=== PATIENT | male | born 1990 | race Caucasian/White ===

== ENCOUNTER → 2016-11-16 | Outpatient (CLI) | payer OTHER ==
[2016-11-16 10:53] LABS: ABSOLUTE BASOPHILS # (AUTO) 0.1 10^3/uL (0.0-0.2); ABSOLUTE EOSINOPHILS # (AUTO) 0.2 10^3/uL (0.0-0.6); ABSOLUTE LYMPHOCYTES (AUTO) 1.8 10^3/uL (0.5-4.7); ABSOLUTE MONOCYTES (AUTO) 0.7 10^3/uL (0.1-1.4); ABSOLUTE NEUT (AUTO) 4.1 10^3/uL (1.7-8.2); BASOPHILS % (AUTO) 0.8 % (0-2); EOSINOPHILS % (AUTO) 2.9 % (0-6); HEMATOCRIT 33.1 % (37.9-51.0); HEMOGLOBIN 10.1 g/dL (13.5-17.0); HGB HCT DIFFERENCE -2.8; LYMPHOCYTES % (AUTO) 26.3 % (13-45); MEAN CORPUSCULAR HEMOGLOBIN 23.8 pg (27.0-33.4); MEAN CORPUSCULAR HGB CONC 30.6 g/dL (32.0-36.0); MEAN CORPUSCULAR VOLUME 78 fl (80-97); MONOCYTES % (AUTO) 10.1 % (3-13); RED BLOOD COUNT 4.25 10^6/uL (4.35-5.55); RED CELL DISTRIBUTION WIDTH 14.9 % (11.5-14.0); SEGMENTED NEUTROPHILS % (AUTO) 59.9 % (42-78); WHITE BLOOD COUNT 6.8 10^3/uL (4.0-10.5)
[2016-11-16 11:33] LABS: ALANINE AMINOTRANSFERASE 25 U/L (21-72); ALBUMIN 3.9 g/dL (3.5-5.0); ALKALINE PHOSPHATASE 69 U/L (38-126); ANION GAP 9 (5-19); ASPARTATE AMINO TRANSFERASE 21 U/L (17-59); BILIRUBIN,TOTAL 0.3 mg/dL (0.2-1.3); BLOOD UREA NITROGEN 16 mg/dL (7-20); CALCIUM 9.6 mg/dL (8.4-10.2); CARBON DIOXIDE 27 mmol/L (22-30); CHLORIDE 105 mmol/L (98-107); CREATININE RESULT 0.69 mg/dL (0.52-1.25); GLUCOSE 109 mg/dL (75-110); SODIUM 141.1 mmol/L (137-145); TOTAL PROTEIN 6.4 g/dL (6.3-8.2)
[2016-11-16 11:34] LABS: ERYTHROCYTE SEDIMENTATION RATE 27 mm/hr (0-15)
[2016-11-16 11:44] LABS: POTASSIUM 4.3 mmol/L (3.6-5.0)
[2016-11-16 11:47] LABS: C-REACTIVE PROTEIN < 5.0 mg/L (<10.0)
== END ==
LOC: CHH 10:38
PROVIDERS: ATTEND Internal Medicine
DX: M86.9 Osteomyelitis, unspecified (principal); Z79.2 Long term (current) use of antibiotics
CPT/HCPCS: 80053; 85025; 85652; 86140

== ENCOUNTER → 2018-04-14 | Outpatient (CLI) | payer OTHER ==
--- NOTE | 2018-04-14 22:23 | RADIOLOGY REPORT (SQ) ---
EXAM DESCRIPTION: MRI LUMBAR SPINE WITHOUT COMPLETED DATE/TIME: 04/14/2018 2:50 pm REASON FOR STUDY: CHRONIC LOW BACK PAIN COMPARISON: None. TECHNIQUE: Sagittal and Axial imaging includes T1, T2, STIR and gradient echo sequences. Coronal T2/ HASTE imaging. LIMITATIONS: None. FINDINGS: VISUALIZED UPPER ABDOMEN: Limited evaluation. No acute or suspicious findings suggested. SEGMENTATION: No transitional anatomy. The lowest well-developed disc space is labeled L5-S1. ALIGNMENT: Anatomic. VERTEBRAE: Intact. BONE MARROW: Normal. No marrow replacement or reactive changes. DISC SIGNAL: Normal. No significant abnormal signal or loss of height. POSTERIOR ELEMENTS: Generally intact. No pars defect evident. HARDWARE: None in the spine. CORD AND CONUS: Normal in size and signal intensity. Conus at the appropriate level. SOFT TISSUES: No aortic aneurysm seen. No bulky retroperitoneal adenopathy or mass. No paraspinal mas s or fluid. L1-L2: No significant spinal stenosis or exit foraminal stenosis. L2-L3: No significant spinal stenosis or exit foraminal stenosis. L3-L4: No significant spinal stenosis or exit foraminal stenosis. L4-L5: No significant spinal stenosis or exit foraminal stenosis. L5-S1: No significant spinal stenosis or exit foraminal stenosis. LOWER THORACIC: Incompletely imaged. No stenosis seen. SACRUM: Visualized upper sacrum intact. OTHER: No other significant findings. IMPRESSION: NORMAL MRI LUMBAR SPINE. TECHNICAL DOCUMENTATION: JOB ID: [id number] [employer]- All Rights Reserved Reading location - IP/workstation name: [email or web address]
== END ==
LOC: RAD 14:05
PROVIDERS: ATTEND Physician Assistant
DX: M54.5 Low back pain (principal); Z89.611 Acquired absence of right leg above knee
CPT/HCPCS: 72148

== ENCOUNTER 2018-06-26 07:28 | Day surgery (SDC) | payer OTHER ==
--- NOTE | 2018-06-19 11:48 | RADIOLOGY REPORT (SQ) ---
EXAM DESCRIPTION: CHEST PA/LATERAL COMPLETED DATE/TIME: 06/19/2018 11:34 am REASON FOR STUDY: PRE-OP COMPARISON: None. TECHNIQUE: Frontal and lateral radiographic views of the chest acquired. NUMBER OF VIEWS: Two view. LIMITATIONS: None. FINDINGS: LUNGS AND PLEURA: No opacities, masses or pneumothorax. No pleural effusion. MEDIASTINUM AND HILAR STRUCTURES: No masses or contour abnormalities. HEART AND VASCULAR STRUCTURES: Heart normal size. No evidence for failure. BONES: No acute findings. HARDWARE: None in the chest. OTHER: No other significant finding. IMPRESSION: NO SIGNIFICANT RADIOGRAPHIC FINDING IN THE CHEST. TECHNICAL DOCUMENTATION: JOB ID: [id number] [employer]- All Rights Reserved Reading location - IP/workstation name: [email or web address]
[2018-06-19 12:08] LABS: APPEARANCE,URINE CLEAR; BILIRUBIN,URINE NEGATIVE (NEGATIVE); COLOR,URINE AMBER; GLUCOSE, URINE NEGATIVE (NEGATIVE); KETONES,URINE TRACE mg/dL (NEGATIVE); LEUKOCYTE ESTERASE,URINE NEGATIVE (NEGATIVE); NITRITE,URINE NEGATIVE (NEGATIVE); PROTEIN,URINE NEGATIVE (NEGATIVE); URINE SPECIFIC GRAVITY 1.024
[2018-06-19 12:09] LABS: HEMATOCRIT 43.5 % (37.9-51.0); HEMOGLOBIN 14.5 g/dL (13.5-17.0); MEAN CORPUSCULAR HEMOGLOBIN 27.8 pg (27.0-33.4); MEAN CORPUSCULAR HGB CONC 33.3 g/dL (32.0-36.0); MEAN CORPUSCULAR VOLUME 83 fl (80-97); PLATELET COUNT 178 10^3/uL (150-450); RED BLOOD COUNT 5.22 10^6/uL (4.35-5.55); RED CELL DISTRIBUTION WIDTH 14.9 % (11.5-14.0); WHITE BLOOD COUNT 6.6 10^3/uL (4.0-10.5)
[2018-06-19 12:31] LABS: ANION GAP 16 (5-19); BLOOD UREA NITROGEN 15 mg/dL (7-20); CARBON DIOXIDE 25 mmol/L (22-30); CHLORIDE 104 mmol/L (98-107); GLUCOSE 82 mg/dL (75-110); POTASSIUM 4.3 mmol/L (3.6-5.0); SODIUM 145.1 mmol/L (137-145)
--- NOTE | 2018-06-19 22:17 | EKG REPORT ---
SEVERITY:- NORMAL ECG - SINUS RHYTHM : Confirmed by: Neva Sanchez 19-Jun-2018 22:17:28
[~2018-06-26 07:28] MED LIST: CEFAZOLIN 2 GM/D5W RTU 2 GM/50 ML RTUPB IV PRN; LACTATED RINGERS 1000 ML IV PRN
[2018-06-26] MEDS ORDERED: KETOROLAC TROMETHAMINE 60 MG/2 ML SDV ONE (09:36)
[2018-06-26] MEDS ORDERED: ONDANSETRON HCL INJ/PF 4 MG/2 ML SDV ONE (09:36)
[2018-06-26] MEDS ORDERED: SUCCINYLCHOLINE CHLORIDE INJ 200 MG/10 ML VIAL ONE (09:36)
[2018-06-26] MEDS ORDERED: DEXAMETHASONE SOD PHOSPHATE INJ 4 MG/1 ML VIAL ONE (09:36)
[2018-06-26] MEDS ORDERED: FENTANYL CITRATE INJ/PF 100 MCG/2 ML AMPUL ONE (11:26)
[2018-06-26] MEDS ORDERED: MIDAZOLAM 2 MG/2 ML INJ ONE (11:26)
[2018-06-26] MEDS ORDERED: PROPOFOL INJ 200 MG/20 ML VIAL IV ONE (11:27)
[2018-06-26] MEDS ORDERED: BUPIVACAINE HCL 0.5%-EPI 1:200000 INJ/PF 30 ML VIAL ONE (11:57)
[2018-06-26] MEDS ORDERED: DIPHENHYDRAMINE HCL 50 MG/ML VIAL IV PRN (12:15)
[2018-06-26] MEDS ORDERED: FENTANYL CITRATE INJ/PF 100 MCG/2 ML AMPUL IV PRN ×3 (12:15)
[2018-06-26] MEDS ORDERED: PROMETHAZINE HCL INJ 25 MG/1 ML VIAL IV PRN ×2 (12:15)
--- NOTE | 2018-06-26 12:51 | Operative Report ---
Operative Report DATE OF SURGERY: 06/26/18 PREOPERATIVE DIAGNOSIS: Painful right above-knee amputation OPERATION: Revision above-knee amputation right. Sciatic neural lysis. Excision sciatic neuroma SURGEON: VADIM CHAVEZ ANESTHESIA: GA TISSUE REMOVED OR ALTERED: Distal femur, sciatic neuroma to pathology ESTIMATED BLOOD LOSS: 50 PROCEDURE: With the patient supine and operative table the right lower extremities prepped and draped in sterile fashion. A sterile tourniquet is placed. Limb was elevated. The tourniquet inflated 300 torr. A distal transverse incision was utilized in line with a previous surgical closure. This is taken down through the subcutaneous tissue and scant fascia to the underlying femur. Periosteum was elevated off the distal femur approximately 2 inches or resected. The edges of the residual femur are shaved using the oscillating saw to prevent any sharp edges. The end of the femur is closed with bone wax. Attention was now turned to identifying the sciatic nerve. This is identified between the hamstring layers and traced proximally. Approximately 3 or 4 inches proximal there is a large bulbous swelling consistent with a neuroma. The sciatic nerve is in transected proximal to this. The tourniquet is deflated. The wound was irrigated. Hemostasis obtained with electrocautery. The wound was then closed using a myoplasty B adjoining the hamstring musculature the quadriceps musculature over the end of the distal femur. Subcutaneous tissue was reapproximated interrupted Vicryl and heron on the skin. A sterile compressive dressing was applied and the patient's return to PACU in satisfactory condition.
[2018-06-26] MEDS: FENTANYL CITRATE INJ/PF 100 MCG/2 ML AMPUL ONE ×2 (13:08→13:13)
[2018-06-26] MEDS ORDERED: ACETAMINOPHEN 1,000 MG/100 ML RTUPB IV ONE (13:24)
[2018-06-26] MEDS ORDERED: RINGERS SOLUTION,LACTATED 1,000 ML IV PRN ×2 (13:44→15:00)
[2018-06-26] MEDS ORDERED: HYDROMORPHONE HCL INJ/PF 2 MG/ML AMPULE IV PRN (13:50)
[2018-06-26] MEDS ORDERED: ONDANSETRON 4 MG TAB.RAPDIS PO PRN (13:50)
[2018-06-26] MEDS: CEFAZOLIN SODIUM 2 GM in DEXTROSE 5%-WATER 100 ML IV SCH ×2 (15:21→21:55)
[2018-06-26] MEDS: MORPHINE SULFATE 10 MG/ML INJ IV PRN ×4 (15:21→23:38)
[2018-06-26] MEDS: HYDROMORPHONE HCL 2 MG TABLET PO PRN (20:12)
[2018-06-26] MEDS: DULOXETINE HCL 30 MG CAPSULE.DR PO SCH (21:54)
[2018-06-26] MEDS: BUPROPION HCL 100 MG TABLET PO SCH (21:54)
[2018-06-26] MEDS: TOPIRAMATE 100 MG TABLET PO SCH (21:55)
[2018-06-26] MEDS: TIZANIDINE HCL 4 MG TABLET PO SCH (21:55)
[2018-06-26] MEDS ORDERED: ATORVASTATIN CALCIUM 20 MG TABLET PO SCH (22:00)
[2018-06-26] MEDS ORDERED: LORATADINE 10 MG TABLET PO SCH (22:00)
[2018-06-26] MEDS: GABAPENTIN 300 MG CAPSULE PO SCH (23:08)
[2018-06-27] MEDS: HYDROMORPHONE HCL 2 MG TABLET PO PRN ×2 (02:21→09:12)
[2018-06-27] MEDS: MORPHINE SULFATE 10 MG/ML INJ IV PRN ×2 (04:53→07:29)
[2018-06-27 05:09] LABS: HEMATOCRIT 35.7 % (37.9-51.0); MEAN CORPUSCULAR HEMOGLOBIN 28.2 pg (27.0-33.4); MEAN CORPUSCULAR HGB CONC 33.7 g/dL (32.0-36.0); MEAN CORPUSCULAR VOLUME 84 fl (80-97); PLATELET COUNT 124 10^3/uL (150-450); RED BLOOD COUNT 4.27 10^6/uL (4.35-5.55); RED CELL DISTRIBUTION WIDTH 14.7 % (11.5-14.0); WHITE BLOOD COUNT 11.1 10^3/uL (4.0-10.5)
[2018-06-27 05:26] LABS: ANION GAP 14 (5-19); BLOOD UREA NITROGEN 11 mg/dL (7-20); CALCIUM 8.9 mg/dL (8.4-10.2); CARBON DIOXIDE 20 mmol/L (22-30); CHLORIDE 108 mmol/L (98-107); GLUCOSE 109 mg/dL (75-110); POTASSIUM 3.3 mmol/L (3.6-5.0); SODIUM 141.5 mmol/L (137-145)
[2018-06-27] MEDS: CEFAZOLIN SODIUM 2 GM in DEXTROSE 5%-WATER 100 ML IV SCH (05:27)
[2018-06-27] MEDS: BUPROPION HCL 100 MG TABLET PO SCH (05:27)
[2018-06-27] MEDS: TIZANIDINE HCL 4 MG TABLET PO SCH (05:27)
[2018-06-27] MEDS: GABAPENTIN 300 MG CAPSULE PO SCH ×2 (05:27→11:24)
[2018-06-27] MEDS ORDERED: LANSOPRAZOLE 30 MG TAB.RAP.DR PO SCH (06:00)
--- NOTE | 2018-06-27 06:37 | PDOC DISCHARGE SUMMARY ---
General - Admit/Disc Date/PCP Admission Date/Primary Care Provider: YAMILEX SZYMANSKI Discharge Date: 06/27/18 - Discharge Diagnosis (1) History of right above knee amputation Is this a current diagnosis for this admission?: Yes - Additional Information Discharge Diet: As Tolerated, Regular Discharge Activity: Balance Activity w/Rest, No tub bath Home Medications: Albuterol Sulfate [Ventolin HFA MDI 18 GM] 2 puff IH Q8 06/19/18 Atorvastatin Calcium [Lipitor 20 mg Tablet] 20 mg PO QHS 06/19/18 Bupropion HCl [Wellbutrin Xl] 300 mg PO DAILY 06/19/18 Duloxetine HCl [Cymbalta] 60 mg PO Q12 06/19/18 Fluticasone Furoate [Arnuity Ellipta] 2 puff IH QAM 06/19/18 Hydrochlorothiazide 25 mg PO DAILY 06/19/18 Hydromorphone HCl [Hydromorphone ER] 8 mg PO QPM 06/19/18 Lansoprazole [Prevacid] 30 mg PO DAILY 06/19/18 Loratadine 10 mg PO QHS 06/19/18 Multivitamin with Minerals [One Daily Plus Minerals] 1 each PO DAILY 06/19/18 Olodaterol HCl [Striverdi Respimat] 5 mcg IH DAILY 06/19/18 Quetiapine Fumarate [Seroquel] 200 mg PO QPM 06/19/18 Ranitidine HCl 150 mg PO BID 06/19/18 Sildenafil Citrate [Viagra] 100 mg PO ASDIR PRN 06/19/18 Tizanidine HCl 8 mg PO TID 06/19/18 Tolmetin Sodium 400 mg PO Q12 06/19/18 Topiramate 100 mg PO Q12 06/19/18 Gabapentin [Neurontin] 600 mg PO Q6 06/26/18 Aspirin [Ecotrin 81 mg EC Tablet] 81 mg PO DAILY tabec 06/27/18 Gabapentin [Neurontin 300 mg Capsule] 600 mg PO Q6 capsule 06/27/18 History of Present Illness History of Present Illness: MANJEET CHAU is a 28 year old male Hospital Course Hospital Course: Patient is a 28-year-old white male status post a number of unfortunate medical incidents beginning with a 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 He presents with problems with the stump coverage as well as a sciatic neuroma. He is admitted for an elective revision of of the right above-knee amputation and excision of the sciatic nerve neuroma The patient is admitted through the operating room where he undergoes uncomplicated surgical procedure with a revision of the right above-knee amputation and resection of the distal 5 inches or so of the sciatic nerve containing a large neuroma. Patient tolerates the procedure without complications returned to floor in satisfactory condition. Analgesia appears appropriate. Patient is able to ambulate as previously. Dressings taken down on the first postoperative day and was well approximated with heron and no drainage. There is no erythema. Previous tenderness at the site of the neuroma seems to be improved. Physical Exam Vital Signs: Temp Pulse Resp BP Pulse Ox 37.0 C 90 14 118/62 96 06/26/18 23:52 06/26/18 23:52 06/26/18 23:52 06/26/18 23:52 06/26/18 23:52 Intake & Output 06/25/18 06/26/18 06/27/18 06:59 06:59 06:59 Intake Total 1666 Output Total 470 Balance 1196 Weight 77.11 kg General appearance: PRESENT: no acute distress, mild distress Head exam: PRESENT: normocephalic Respiratory exam: PRESENT: unlabored Cardiovascular exam: PRESENT: RRR GI/Abdominal exam: PRESENT: soft Rectal exam: PRESENT: deferred Extremities exam: PRESENT: other - Right lower extremity incision is well approximated heron. It is dry. There is brisk capillary refill on both edges. Neurological exam: PRESENT: alert, awake, oriented to person, oriented to place , oriented to time, oriented to situation. ABSENT: motor sensory deficit Psychiatric exam: PRESENT: appropriate affect, normal mood. ABSENT: homicidal ideation, suicidal ideation Skin exam: PRESENT: dry, intact, warm. ABSENT: cyanosis, rash Results Laboratory Results: 06/27/18 04:39 06/27/18 04:39 06/26/18 06/27/18 06/27/18 08:00 04:39 04:39 WBC 11.1 H RBC 4.27 L Hgb 12.0 L Hct 35.7 L MCV 84 MCH 28.2 MCHC 33.7 RDW 14.7 H Plt Count 124 L Sodium 141.5 Potassium 3.7 3.3 L Chloride 108 H Carbon Dioxide 20 L Anion Gap 14 BUN 11 Creatinine 0.88 Est GFR ( Amer) > 60 Est GFR (Non-Af Amer) > 60 Glucose 109 Calcium 8.9 Impressions: Chest X-Ray 06/19/18 11:19 IMPRESSION: NO SIGNIFICANT RADIOGRAPHIC FINDING IN THE CHEST. Status: Imported from PACS Qualifiers - * PATIENT BEING DISCHARGED WITH ANY OF THE FOLLOWING DIAGNOSIS: No VTE patient discharged on overlapping Therapy?: Yes Plan Discharge Plan: Patient to be discharged home today with home health services. Patient to use a stump exerciser as previously. Follow-up with Dr. Salter and [facility] for surgery in 2 weeks for staple removal. Time Spent: Less than 30 Minutes
[2018-06-27] MEDS ORDERED: FLUTICASONE FUROATE IH SCH (08:00)
[2018-06-27] MEDS: DULOXETINE HCL 30 MG CAPSULE.DR PO SCH (09:12)
[2018-06-27] MEDS: TOPIRAMATE 100 MG TABLET PO SCH (09:13)
[2018-06-27] MEDS ORDERED: ASPIRIN 81 MG TABLET, ENT COATED PO SCH (10:00)
[2018-06-27] MEDS ORDERED: OLODATEROL HCL IH SCH (10:00)
[2018-06-27] MEDS ORDERED: FAMOTIDINE 20 MG TABLET PO SCH (10:00)
[2018-06-27] MEDS ORDERED: MULTIVITAMIN TABLET PO SCH (10:00)
[2018-06-27] MEDS ORDERED: [UNRECOGNIZED DRUG - OTHER] PO SCH (10:00)
[2018-06-27] MEDS ORDERED: (PENDING PHARMACY ID) (Multivitamin With Minerals [One Daily Plus Minerals] 1 EACH) PO SCH (10:00)
[2018-06-27] MEDS ORDERED: HYDROCHLOROTHIAZIDE 25 MG TABLET PO SCH (10:00)
[2018-06-27] MEDS ORDERED: (PENDING PHARMACY ID) (Bupropion Hcl [Wellbutrin Xl] 300 MG) PO SCH (10:00)
[2018-06-27] MEDS ORDERED: (PENDING PHARMACY ID) (Ranitidine Hcl [Ranitidine Hcl] 150 MG) PO SCH (10:00)
[2018-06-27] MEDS ORDERED: ALBUTEROL SULFATE HFA (90 MCG/PUFF) 200 PUFF/8.5 GM MDI IH SCH (10:00)
[2018-06-27 11:06] VITALS: BP 107/70
[2018-06-27] MEDS ORDERED: QUETIAPINE FUMARATE 100 MG TABLET PO SCH (18:00)
== END 2018-06-27 11:47 | disposition home health service (06) ==
LOC: OROUT 07:28 → 4N 14:07 → OROUT 06-27 11:47
PROVIDERS: ATTEND Orthopaedic Surgery
DX: G54.6 Phantom limb syndrome with pain (principal); T87.33 Neuroma of amputation stump, right lower extremity; Y83.5 Amputation of limb(s) as the cause of abnormal reaction of the patient, or of later complication, without mention of misadventure at the time of the procedure; Z89.611 Acquired absence of right leg above knee; F17.210 Nicotine dependence, cigarettes, uncomplicated; I10 Essential (primary) hypertension; Z79.51 Long term (current) use of inhaled steroids; Z79.899 Other long term (current) drug therapy; Z88.5 Allergy status to narcotic agent
CPT/HCPCS: 93005; 36415 ×2; 84132; 85027 ×2; 80048 ×2; 81001; 88305 ×2; 88311; 71046; 93010; 97116; 97163; 27596; J2250; J3490 ×6; J0690 ×3; J1100; J1885; J3010; J2270 ×2; J0330; J2405; J2704; J0131; 01232

== ENCOUNTER 2018-07-10 14:03 | Emergency (ER) | payer OTHER ==
--- NOTE | 2018-07-10 15:18 | ER Document Report ---
ED Wound - General Chief Complaint: Post Surgical Pain Stated Complaint: POST OP COMPLICATION Time Seen by Provider: 07/10/18 14:53 Mode of Arrival: Ambulatory Information source: Patient Notes: Patient complains of wound dehiscence which he noticed this morning on his right above-knee amputation stump. He denies any injury or trauma. TRAVEL OUTSIDE OF THE [place] IN LAST 30 DAYS: No - HPI Patient complains to provider of: Post surgical problem, Other - Wound dehiscence Occurred: This morning Onset/Duration: Sudden Quality of pain: Achy Severity: Mild Pain Level: 1 Skin Temperature: Warm Skin Color: Normal Capillary refill: < 3 seconds Sensations intact: Yes Distal pulses present: Yes Associated Symptoms: Dehiscence - Related Data Allergies/Adverse Reactions: meperidine [From Demerol] Allergy (Severe, Verified 07/10/18 15:01) Anaphylaxis oxycodone Allergy (Verified 07/10/18 15:01) Hives Past Medical History - Social History Smoking Status: Never Smoker Chew tobacco use (# tins/day): No Frequency of alcohol use: None Drug Abuse: None Family History: Reviewed & Not Pertinent Patient has suicidal ideation: No Patient has homicidal ideation: No - Past Medical History Cardiac Medical History: Reports: Hx Hypertension Denies: Hx Coronary Artery Disease, Hx Heart Attack Pulmonary Medical History: Reports: Hx Asthma, Hx Bronchitis Denies: Hx COPD, Hx Pneumonia Neurological Medical History: Denies: Hx Cerebrovascular Accident, Hx Seizures Renal/ Medical History: Denies: Hx Peritoneal Dialysis Musculoskeletal Medical History: Reports Hx Arthritis Past Surgical History: Reports: Hx Orthopedic Surgery - right lower [id number] - Immunizations Hx Diphtheria, Pertussis, Tetanus Vaccination: Yes Review of Systems - Review of Systems Constitutional: denies: Chills, Fever EENT: denies: Eye pain, Eye discharge Cardiovascular: No symptoms reported Respiratory: denies: Cough, Short of breath Gastrointestinal: denies: Abdominal pain, Diarrhea, Nausea, Vomiting Genitourinary: No symptoms reported. denies: Burning, Dysuria, Discharge Male Genitourinary: No symptoms reported Musculoskeletal: Other - Wound dehiscence on the right stump. Skin: Change in color Hematologic/Lymphatic: No symptoms reported Neurological/Psychological: No symptoms reported -: Yes All other systems reviewed and negative Physical Exam - Vital signs Vitals: Temp Pulse Resp BP Pulse Ox 97.7 F 89 16 106/74 98 07/10/18 14:24 07/10/18 14:24 07/10/18 14:24 07/10/18 14:24 07/10/18 14:24 - General General appearance: Appears well, Alert In distress: None - HEENT Head: Normocephalic, Atraumatic Eyes: Normal Pupils: PERRL - Respiratory Respiratory status: No respiratory distress Chest status: Nontender Breath sounds: Normal Chest palpation: Normal - Cardiovascular Rhythm: Regular Heart sounds: Normal auscultation Murmur: No - Abdominal Inspection: Normal Distension: No distension Bowel sounds: Normal Tenderness: Nontender Organomegaly: No organomegaly - Back Back: Normal, Nontender - Extremities General upper extremity: Other - Wound dehiscence on the right above-knee amputation stump approximately 6 cm long and 0.5 cm deep. Bleeding is controlled. No purulent discharge. Shoulder: Normal Arm: Normal Elbow: Normal Forearm: Normal Wrist: Normal Hand: Normal Hip: Normal Thigh: Normal - Neurological Neuro grossly intact: Yes Cognition: Normal Orientation: AAOx4 [place] Coma Scale Eye Opening: Spontaneous [place] Coma Scale Verbal: Oriented [place] Coma Scale Motor: Obeys Commands [place] Coma Scale Total: 15 Speech: Normal Motor strength normal: LUE, RUE, LLE, RLE Sensory: Normal - Psychological Associated symptoms: Normal affect, Normal mood - Skin Skin Temperature: Warm Skin Moisture: Dry Skin Color: Normal Course - Re-evaluation Re-evalutation: 07/10/18 15:[address] Jayme John who is balloon maker for Dr. Salter. He recommend wet- to-dry dressing to the wound to be done twice a day at home. He want patient to be discharged with p.o. antibiotics to follow-up with Dr. Salter in his clinic on Sunday. - Vital Signs Vital signs: Temp Pulse Resp BP Pulse Ox 97.7 F 89 16 106/74 98 07/10/18 14:24 07/10/18 14:24 07/10/18 14:24 07/10/18 14:24 07/10/18 14:24 Discharge - Discharge Clinical Impression: Surgical wound dehiscence Qualifiers: Encounter type: initial encounter Qualified Code(s): T81.31XA - Disruption of external operation (surgical) wound, not elsewhere classified, initial encounter Condition: Stable Disposition: HOME, SELF-CARE Instructions: Dressing Instructions for Open Wounds ([facility]) Additional Instructions: Please do wet-to-dry dressing on your wound twice a day. Follow-up with Dr. Salter on Sunday for further evaluation and management. Return to the emergency room if your wound dehiscence worsens or you start running a fever or you start seeing purulent discharge from the wound or for any other major concern. Take your antibiotics as prescribed. Prescriptions: Sulfamethoxazole/Trimethoprim [Bactrim Ds Tablet] 1 each PO BID #28 tablet Referrals: KARMEN ARRIOLA FNP [Primary Care Provider] - Follow up as needed
[2018-07-10] MEDS ORDERED: SULFAMETHOXAZOLE/TRIMETHOPRIM 800-160 MG TABLET PO ONE (15:23)
[2018-07-10 16:37] VITALS: BP 106/78
== END 2018-07-10 16:05 | disposition home or self-care (01) ==
LOC: ER 14:03
DX: T87.81 Dehiscence of amputation stump (principal); Z89.611 Acquired absence of right leg above knee
CPT/HCPCS: 99283

== ENCOUNTER → 2018-11-07 | Outpatient (CLI) | payer OTHER ==
--- NOTE | 2018-11-07 14:07 | RADIOLOGY REPORT (SQ) ---
EXAM DESCRIPTION: CT ABD/PELVIS WITH IV ORAL COMPLETED DATE/TIME: 11/07/2018 1:45 pm REASON FOR STUDY: R59.9 ENLARGED LYMPH NODES, UNSPECIFIED R59.9 ENLARGED LYMPH NODES, UNSPECIFIED COMPARISON: None. TECHNIQUE: CT scan of the abdomen and pelvis performed with intravenous and oral contrast using antoine lacey scanning technique with dynamic intravenous contrast injection. Images reviewed with lung, soft t issue, and bone windows. Reconstructed coronal and sagittal MPR images reviewed. Delayed images for e valuation of the urinary system also acquired. All images stored on PACS. All CT scanners at this facility use dose modulation, iterative reconstruction, and/or weight based d osing when appropriate to reduce radiation dose to as low as reasonably achievable (ALARA). [facility]: Dose Right [facility]: CareDose [facility]: Dose Right [facility]: Teradose 4D [facility]: Memrise CONTRAST TYPE AND DOSE: contrast/concentration: Isovue 350.00 mg/ml; Total Contrast Delivered: 94.0 ml; Total Saline Delivered: 71.0 ml RENAL FUNCTION: GFR > 60. RADIATION DOSE: CT Rad equipment meets quality standard of care and radiation dose reduction techniq ues were employed. CTDIvol: 8.4 - 9.5 mGy. DLP: 1029 mGy-cm. . LIMITATIONS: None. FINDINGS: LOWER CHEST: No significant findings. No nodules or infiltrates. LIVER: Normal size. No masses. No dilated ducts. SPLEEN: Normal size. No focal lesions. PANCREAS: No masses. No significant calcifications. No adjacent inflammation or peripancreatic fluid collections. Pancreatic duct not dilated. GALLBLADDER: No identified stones by CT criteria. No inflammatory changes to suggest cholecystitis. ADRENAL GLANDS: No significant masses or asymmetry. RIGHT KIDNEY AND URETER: No solid masses. No significant calcifications. No hydronephrosis or hyd roureter. LEFT KIDNEY AND URETER: No solid masses. No significant calcifications. No hydronephrosis or hydr oureter. AORTA AND VESSELS: No aneurysm. No dissection. Renal arteries, SMA, celiac without stenosis. RETROPERITONEUM: No retroperitoneal adenopathy, hemorrhage or masses. BOWEL AND PERITONEAL CAVITY: No obstruction. No visualized masses. No free fluid. No inflammatory ch anges or thickening of bowel wall. APPENDIX: Normal. PELVIS: There are small bilateral inguinal nodes, the largest on the right 11 x 14 mm. Remaining nod es have preserved fatty hilum or measure less than 1 cm short axis. No pelvic adenopathy. Normal omaira dder. No free fluid. ABDOMINAL WALL: No masses. No hernias. BONES: No significant or acute findings. OTHER: No other significant finding. IMPRESSION: Mildly enlarged right inguinal node. No bulky adenopathy. TECHNICAL DOCUMENTATION: JOB ID: [id number] Quality ID # [id number]: Final reports with documentation of one or more dose reduction techniques (e.g., Au tomated exposure control, adjustment of the mA and/or kV according to patient size, use of iterative reconstruction technique) 2010 [employer]- All Rights Reserved Reading location - IP/workstation name: [email or web address]
== END ==
LOC: RAD 14:53
PROVIDERS: ATTEND Internal Medicine Medical Oncology
DX: R59.9 Enlarged lymph nodes, unspecified (principal)
CPT/HCPCS: 74177; 82565

== ENCOUNTER → 2019-02-03 | Outpatient (CLI) | payer OTHER ==
--- NOTE | 2019-02-03 12:37 | RADIOLOGY REPORT (SQ) ---
EXAM DESCRIPTION: CT CHEST WITH COMPLETED DATE/TIME: 02/03/2019 10:22 am REASON FOR STUDY: ENLARGE LYMPH NODES (R59.9) R59.9 ENLARGED LYMPH NODES, UNSPECIFIED COMPARISON: None. TECHNIQUE: CT scan of the chest performed using helical scanning technique with dynamic intravenous contrast injection. Images reviewed with lung, soft tissue and bone windows. Reconstructed coronal and sagittal MPR and MIP images reviewed. All images stored on PACS. All CT scanners at this facility use dose modulation, iterative reconstruction, and/or weight based d osing when appropriate to reduce radiation dose to as low as reasonably achievable (ALARA). [facility]: Dose Right [facility]: CareDose [facility]: Dose Right [facility]: Teradose 4D [facility]: GoCoop CONTRAST TYPE AND DOSE: 96 mL Omnipaque 350- low osmolar. RENAL FUNCTION: Creatinine 1.1 RADIATION DOSE: . LIMITATIONS: None. FINDINGS: LUNGS AND PLEURA: No opacities, nodules, masses. No pneumothorax. No effusions. HILAR AND MEDIASTINAL STRUCTURES: No identified masses or abnormal nodes. HEART AND VASCULAR STRUCTURES: No aneurysm or dissection. No central pulmonary emboli. No pericardi al effusion. HARDWARE: None in the chest. UPPER ABDOMEN: See separate report of the CT of the abdomen. THYROID AND OTHER SOFT TISSUES: No masses. No adenopathy. BONES: No significant finding. OTHER: No other significant finding. IMPRESSION: NORMAL CT OF THE CHEST WITH IV CONTRAST. TECHNICAL DOCUMENTATION: JOB ID: [id number] Quality ID # [id number]: Final reports with documentation of one or more dose reduction techniques (e.g., Au tomated exposure control, adjustment of the mA and/or kV according to patient size, use of iterative reconstruction technique) 2010 [employer]- All Rights Reserved Reading location - IP/workstation name: [email or web address]
--- NOTE | 2019-02-03 12:49 | RADIOLOGY REPORT (SQ) ---
EXAM DESCRIPTION: CT ABD/PELVIS WITH IV ORAL COMPLETED DATE/TIME: 02/03/2019 10:22 am REASON FOR STUDY: ENLARGE LYMPH NODES (R59.9) R59.9 ENLARGED LYMPH NODES, UNSPECIFIED COMPARISON: 11/07/2018 TECHNIQUE: CT scan of the abdomen and pelvis performed using helical scanning technique with dynamic intravenous contrast injection. Oral contrast. Images reviewed with lung, soft tissue, and bone win dows. Reconstructed coronal and sagittal MPR images reviewed. Delayed images for evaluation of the ur inary system also acquired. All images stored on PACS. All CT scanners at this facility use dose modulation, iterative reconstruction, and/or weight based d osing when appropriate to reduce radiation dose to as low as reasonably achievable (ALARA). [facility]: Dose Right [facility]: CareDose [facility]: Dose Right [facility]: Teradose 4D [facility]: Stylenda CONTRAST TYPE AND DOSE: contrast/concentration: Isovue 350.00 mg/ml; Total Contrast Delivered: 96.0 ml; Total Saline Delivered: 71.0 ml RENAL FUNCTION: Creatinine 1.1 RADIATION DOSE: CT Rad equipment meets quality standard of care and radiation dose reduction techniq ues were employed. CTDIvol: 7.6 - 8.8 mGy. DLP: 1289 mGy-cm.. LIMITATIONS: None. FINDINGS: LOWER CHEST: See separate report of the CT of the chest. LIVER: Normal size. No masses. No dilated ducts. SPLEEN: Normal size. No focal lesions. PANCREAS: No masses. No significant calcifications. No adjacent inflammation or peripancreatic fluid collections. Pancreatic duct not dilated. GALLBLADDER: No identified stones by CT criteria. No inflammatory changes to suggest cholecystitis. ADRENAL GLANDS: No significant masses or asymmetry. RIGHT KIDNEY AND URETER: No solid masses. No significant calcifications. No hydronephrosis or hyd roureter. LEFT KIDNEY AND URETER: No solid masses. No significant calcifications. No hydronephrosis or hydr oureter. AORTA AND VESSELS: No aneurysm. No dissection. Renal arteries, SMA, celiac without stenosis. RETROPERITONEUM: No retroperitoneal adenopathy, hemorrhage or masses. BOWEL AND PERITONEAL CAVITY: No masses or inflammatory changes. No free fluid or peritoneal masses. APPENDIX: Normal. PELVIS: No mass. No intrapelvic adenopathy. Normal bladder. There are some small inguinal nodes on the right larger than left. The largest node measures 11 x 10.3 mm compared to 13.9 x 10.9 mm on e earlier study. ABDOMINAL WALL: No masses. No hernias. BONES: No significant or acute findings. OTHER: No other significant finding. IMPRESSION: Inguinal nodes as described. The largest is smaller than on the earlier study. No intr a-abdominal or intrapelvic adenopathy. TECHNICAL DOCUMENTATION: JOB ID: [id number] Quality ID # [id number]: Final reports with documentation of one or more dose reduction techniques (e.g., Au tomated exposure control, adjustment of the mA and/or kV according to patient size, use of iterative reconstruction technique) 2010 [employer]- All Rights Reserved Reading location - IP/workstation name: [email or web address]
== END ==
LOC: RAD 09:40
PROVIDERS: ATTEND Internal Medicine Medical Oncology
DX: R59.9 Enlarged lymph nodes, unspecified (principal)
CPT/HCPCS: 71260; 74177; 82565

== ENCOUNTER → 2019-05-13 | Outpatient (CLI) | payer OTHER ==
[2019-05-13 15:50] LABS: ABSOLUTE EOSINOPHILS # (AUTO) 0.1 10^3/uL (0.0-0.6); ABSOLUTE LYMPHOCYTES (AUTO) 2.2 10^3/uL (0.5-4.7); ABSOLUTE MONOCYTES (AUTO) 0.6 10^3/uL (0.1-1.4); BASOPHILS % (AUTO) 0.8 % (0-2); EOSINOPHILS % (AUTO) 2.3 % (0-6); HEMATOCRIT 43.8 % (37.9-51.0); HEMOGLOBIN 14.7 g/dL (13.5-17.0); LYMPHOCYTES % (AUTO) 37.4 % (13-45); MEAN CORPUSCULAR HEMOGLOBIN 28.3 pg (27.0-33.4); MEAN CORPUSCULAR HGB CONC 33.5 g/dL (32.0-36.0); MEAN CORPUSCULAR VOLUME 85 fl (80-97); MONOCYTES % (AUTO) 9.7 % (3-13); PLATELET COUNT 177 10^3/uL (150-450); RED BLOOD COUNT 5.18 10^6/uL (4.35-5.55); RED CELL DISTRIBUTION WIDTH 13.7 % (11.5-14.0); SEGMENTED NEUTROPHILS % (AUTO) 49.8 % (42-78); TOTAL CELLS COUNTED % (AUTO) 100 %
[2019-05-13 15:52] LABS: APPEARANCE,URINE SLIGHTLY-CLOUDY; BILIRUBIN,URINE NEGATIVE (NEGATIVE); GLUCOSE, URINE NEGATIVE (NEGATIVE); KETONES,URINE NEGATIVE (NEGATIVE); LEUKOCYTE ESTERASE,URINE NEGATIVE (NEGATIVE); NITRITE,URINE NEGATIVE (NEGATIVE); PROTEIN,URINE NEGATIVE (NEGATIVE); URINE SPECIFIC GRAVITY 1.025; UROBILINOGEN,URINE NEGATIVE mg/dL (<2.0)
[2019-05-13 15:55] LABS: COLOR,URINE YELLOW; INTERNATIONAL RATION (INR) 1.07; PARTIAL THROMBOPLASTIN TIME 32.9 SEC (23.5-35.8); PROTHROMBIN TIME 13.9 SEC (11.4-15.4)
== END ==
LOC: OD 15:01
PROVIDERS: ATTEND Pain Medicine Interventional Pain Medicine
DX: Z01.818 Encounter for other preprocedural examination (principal)
CPT/HCPCS: 36415; 81001; 85025; 85610; 85730

== ENCOUNTER → 2019-06-05 | Outpatient (CLI) | payer OTHER ==
--- NOTE | 2019-06-05 17:07 | NEURO WORKBENCH EEG REPORT ---
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 The patient had 4 hours of sleep. This EEG was requested for seizures. EEG Interpretation This EEG was recorded in the awake and drowsy states. The awake EEG is characterized by a well-organized background with a well-developed and reactive posterior dominant rhythm of 10Hz. The remainder of the background consisted of a mix of mostly alpha with some low amplitude beta activity. There was theta activity that could be consistent with the drowsy state. Drowsiness was characterized by slowing of the background rhythms. Sleep was not obtained. Photic stimulation resulted in a good driving response. There were no epileptiform abnormalities. The EKG showed a regular rhythm. EEG Classification Normal EEG Impression This EEG is within normal limits for age in the awake and drowsy states. If clinically indicated, a further EEG with sleep obtained may be considered. INTERPRETING NEUROLOGIST: Terri Bunch MD, FRCPC Board Certified in Neurology, with special qualification in Child Neurology, and in Clinical Neurophysiology [facility]
== END ==
LOC: NEURO 12:49
PROVIDERS: ATTEND Specialist
DX: G40.802 Other epilepsy, not intractable, without status epilepticus (principal)
CPT/HCPCS: 95819

== ENCOUNTER 2019-07-15 07:15 | Day surgery (SDC) | payer OTHER ==
[2019-07-08 09:47] LABS: HEMATOCRIT 46.6 % (37.9-51.0); HEMOGLOBIN 15.7 g/dL (13.5-17.0); MEAN CORPUSCULAR HEMOGLOBIN 28.2 pg (27.0-33.4); MEAN CORPUSCULAR HGB CONC 33.8 g/dL (32.0-36.0); MEAN CORPUSCULAR VOLUME 84 fl (80-97); PLATELET COUNT 171 10^3/uL (150-450); RED BLOOD COUNT 5.58 10^6/uL (4.35-5.55); RED CELL DISTRIBUTION WIDTH 13.1 % (11.5-14.0); WHITE BLOOD COUNT 8.1 10^3/uL (4.0-10.5)
[2019-07-08 09:51] LABS: APPEARANCE,URINE SLIGHTLY-CLOUDY; BILIRUBIN,URINE NEGATIVE (NEGATIVE); CALCIUM OXALATE CRYSTALS,URINE RARE /HPF; COLOR,URINE YELLOW; GLUCOSE, URINE NEGATIVE (NEGATIVE); KETONES,URINE TRACE mg/dL (NEGATIVE); LEUKOCYTE ESTERASE,URINE NEGATIVE (NEGATIVE); NITRITE,URINE NEGATIVE (NEGATIVE); PROTEIN,URINE NEGATIVE (NEGATIVE); URIC ACID CRYSTALS,URINE FEW /HPF; URINE SPECIFIC GRAVITY 1.027; UROBILINOGEN,URINE NEGATIVE mg/dL (<2.0)
[2019-07-08 09:57] LABS: INTERNATIONAL RATION (INR) 1.07; PARTIAL THROMBOPLASTIN TIME 30.3 SEC (23.5-35.8); PROTHROMBIN TIME 13.9 SEC (11.4-15.4)
--- NOTE | 2019-07-08 10:33 | RADIOLOGY REPORT (SQ) ---
EXAM DESCRIPTION: CHEST PA/LATERAL COMPLETED DATE/TIME: 07/08/2019 10:25 am REASON FOR STUDY: PRE-OP COMPARISON: 06/19/2018 EXAM PARAMETERS: NUMBER OF VIEWS: two views TECHNIQUE: Digital Frontal and Lateral radiographic views of the chest acquired. RADIATION DOSE: NA LIMITATIONS: none FINDINGS: LUNGS AND PLEURA: No opacities, masses or pneumothorax. No pleural effusion. MEDIASTINUM AND HILAR STRUCTURES: No masses or contour abnormalities. HEART AND VASCULAR STRUCTURES: Heart normal size. No evidence for failure. BONES: No acute findings. HARDWARE: None in the chest. OTHER: No other significant finding. IMPRESSION: NO SIGNIFICANT RADIOGRAPHIC FINDING IN THE CHEST. TECHNICAL DOCUMENTATION: JOB ID: [id number] [employer]- All Rights Reserved Reading location - IP/workstation name: [email or web address]
--- NOTE | 2019-07-08 20:56 | EKG REPORT ---
SEVERITY:- NORMAL ECG - SINUS RHYTHM : Confirmed by: Flori Oconnell MD 08-Jul-2019 20:55:30
[~2019-07-15 07:15] MED LIST changes: +CEFAZOLIN 1 GM/D5W RTU 1 GM/50 ML RTUPB IV ONE; +CEFAZOLIN 1 GM/D5W RTU 1 GM/50 ML RTUPB IV PRN; -CEFAZOLIN 2 GM/D5W RTU 2 GM/50 ML RTUPB IV PRN; +LIDOCAINE 0.5% INJ-PF (5 MG/ML) 50 ML SDV SUBCUT PRN
[2019-07-15] MEDS ORDERED: LIDOCAINE 1% INJ-PF (10 MG/ML) 30 ML SDV ONE (08:04)
[2019-07-15] MEDS ORDERED: SODIUM BICARBONATE 4.2% INJ (2.5 MEQ/5 ML) VIAL ONE (08:04)
[2019-07-15] MEDS ORDERED: BUPIVACAINE HCL 0.5%-EPI 1:200000 INJ/PF 30 ML VIAL ONE (08:05)
[2019-07-15] MEDS ORDERED: DIPHENHYDRAMINE HCL 50 MG/ML VIAL IV PRN (08:38)
[2019-07-15] MEDS ORDERED: FENTANYL CITRATE INJ/PF 100 MCG/2 ML AMPUL IV PRN ×3 (08:38)
[2019-07-15] MEDS ORDERED: MIDAZOLAM 2 MG/2 ML INJ ONE (09:44)
[2019-07-15] MEDS ORDERED: PROPOFOL INJ 200 MG/20 ML VIAL IV ONE (09:44)
[2019-07-15] MEDS ORDERED: FENTANYL CITRATE INJ/PF 100 MCG/2 ML AMPUL ONE (09:44)
[2019-07-15] MEDS ORDERED: LIDOCAINE 2% INJ (20 MG/ML) 20 ML MDV ONE (09:45)
[2019-07-15] MEDS ORDERED: CEFAZOLIN INJ 1 GM VIAL ONE (11:05)
--- NOTE | 2019-07-15 11:20 | Operative Report ---
Operative Report DATE OF SURGERY: 07/15/19 PREOPERATIVE DIAGNOSIS: phantom limb pain POSTOPERATIVE DIAGNOSIS: Same OPERATION: Implantation of spinal cord stimulater pulse generator #2 implantation of right and left spinal cord stimulator electrodes #3 fluoroscopy for needle and wire placement #4 pulse generator analysis SURGEON: PRESTON [employer] B[employer]CHANIC APPRENTICE: KRISTI WELLS ANESTHESIA: LMAC TISSUE REMOVED OR ALTERED: None COMPLICATIONS: None ESTIMATED BLOOD LOSS: 10 mL's INTRAOPERATIVE FINDINGS: Consistent with diagnosis PROCEDURE: Preoperative Diagnosis: Post Laminectomy Pain Syndrome Postoperative Diagnosis:Same Procedure: SCS Electrode Placement with Impulse Generator Surgeon: Prestno Mcgovern MD Electric Powerline Examiner: Dr. Kristi Wells Anesthesia: MAC Complications: None Procedure Detail: After obtaining informed consent and advising the patient of the risks and benef its, including serious neurological injury, bleeding and infection, allergic reaction and , the patient was taken to the operating room. After discussion with the patient, a suitable site was marked for the impulse generator pocket. The patient was then placed comfortably in the prone position. Comfort was assessed visually and verbally. The patient was then prepped with chlorhexidine with a suitable drying time prior to drapping. The patient was evaluated under fluoroscopy in the AP view. An adequate space was found at T12/L1 and a midline incision site was marked to allow needle entry. The skin overlying both the midline and IPG sites were anesthetized with 1% lidocaine with bicarbonate, followed by bupivacaine 0.25% with epinephrine. Beginning at the midline incision, Sharp and blunt dissection were performed down to the underlying fascia. Using a left paramedian approach, a 14 gauge Tuohy needle was placed in the epidural space at T12-L1 using a loss or resistance to saline technique. A second needle using a right paramedian approach was placed in the epidural space in the same manner. An electrode was inserted through each needle and advanced under serial fluoroscopy views to the top of T9 on the right and left. After placement, lateral imaging was obtained for appropriate posterior position in the epidural space. The leads were then tested and appropriate stimulation was found after discussion with the patient. The leads were then secured using 0 Mersilene pursetrings with anchors in place. The anchors were then sututred in place. The needles were remove sequentially under fluoroscopic guidance. The anchors and pursestrings were secured. While lead positioning was occurring, Dr. Wells was assisting creating the pocket for the pulse generator. As soon as the pocket was made, proper hemostasis was confirmed. The skin between the midline and IPG pocket was then anesthetized with 1% lidocaine. A tunneling tool was then utilized to bring the midline electrodes to the IPG pocket. Both sites were then inspected with appropriate hemostasis. The wires were easily placed in the midline, stitched to the pocket, connected to the pulse generator which was then tested with appropriate communication. All connections were then secured and confirmed. The generator was connected to the electrodes. All hex nuts were secured. The generator was placed in the pocket and impedance was tested and was felt to be satisfactory. Good connectivity with the new generator was obtained. The wounds were then copiously irrigated with Betadine containing irrigation solution. The sites were then closed with interrupted vertical mattress sutures with 2-0 Polysorb. The skin came together nicely. The midline incision was further closed with a running 4-0 monofilament subcuticular. The region was cleansed again followed by placement of dermabond tape and cement. When this was dry, suitable tegaderm sponge dressings were placed. The patient was then taken back to PACU for postoperative care and monitoring.
[2019-07-15] MEDS: FENTANYL CITRATE INJ/PF 100 MCG/2 ML AMPUL ONE ×2 (11:21→11:30)
[2019-07-15] MEDS ORDERED: ACETAMINOPHEN 1,000 MG/100 ML RTUPB IV ONE (11:33)
[2019-07-15] MEDS ORDERED: HYDROMORPHONE HCL 2 MG TABLET PO PRN (11:51)
[2019-07-15] MEDS ORDERED: ONDANSETRON HCL INJ/PF 4 MG/2 ML SDV IV PRN (11:51)
[2019-07-15] MEDS ORDERED: HYDROMORPHONE HCL 2 MG TABLET ONE (12:10)
[2019-07-15 13:28] VITALS: BP 115/65
--- NOTE | 2019-07-15 14:49 | RADIOLOGY REPORT (SQ) ---
EXAM DESCRIPTION: THORACOLUMBAR SPINE AP/LAT; NO CHG FLUORO COMPLETED DATE/TIME: 07/15/2019 2:34 pm REASON FOR STUDY: SPINAL CORD STIMULATOR ASST WITH FLUORO IN OR M54.16 RADICULOPATHY, LUMBAR REGION G89.4 CHRONIC PAIN SYNDROME COMPARISON: None. FLUOROSCOPY TIME: 10.4 minutes. 9 images saved to PACS. TECHNIQUE: Intra-operative images acquired during surgical procedure to evaluate progress. NUMBER OF IMAGES: 9 images. LIMITATIONS: None. FINDINGS: Images of the spine acquired during electrode placement. IMPRESSION: IMAGE(S) OBTAINED DURING PROCEDURE. COMMENT: Quality ID [id number]: Final reports for procedures using fluoroscopy that document radiation exp osure indices, or exposure time and number of fluorographic images (if radiation exposure indices are not available) Please consult full operative report of the attending physician for description of the procedure. TECHNICAL DOCUMENTATION: JOB ID: [id number] [employer]- All Rights Reserved Reading location - IP/workstation name: [email or web address]
--- NOTE | 2019-07-15 14:49 | RADIOLOGY REPORT (SQ) ---
EXAM DESCRIPTION: THORACOLUMBAR SPINE AP/LAT; NO CHG FLUORO COMPLETED DATE/TIME: 07/15/2019 2:34 pm REASON FOR STUDY: SPINAL CORD STIMULATOR ASST WITH FLUORO IN OR M54.16 RADICULOPATHY, LUMBAR REGION G89.4 CHRONIC PAIN SYNDROME COMPARISON: None. FLUOROSCOPY TIME: 10.4 minutes. 9 images saved to PACS. TECHNIQUE: Intra-operative images acquired during surgical procedure to evaluate progress. NUMBER OF IMAGES: 9 images. LIMITATIONS: None. FINDINGS: Images of the spine acquired during electrode placement. IMPRESSION: IMAGE(S) OBTAINED DURING PROCEDURE. COMMENT: Quality ID [id number]: Final reports for procedures using fluoroscopy that document radiation exp osure indices, or exposure time and number of fluorographic images (if radiation exposure indices are not available) Please consult full operative report of the attending physician for description of the procedure. TECHNICAL DOCUMENTATION: JOB ID: [id number] [employer]- All Rights Reserved Reading location - IP/workstation name: [email or web address]
== END 2019-07-15 13:00 | disposition home or self-care (01) ==
LOC: OROUT 07:15
PROVIDERS: ATTEND Pain Medicine Interventional Pain Medicine
DX: G89.4 Chronic pain syndrome (principal); M54.16 Radiculopathy, lumbar region; J45.909 Unspecified asthma, uncomplicated; E78.5 Hyperlipidemia, unspecified; I10 Essential (primary) hypertension; K21.9 Gastro-esophageal reflux disease without esophagitis; M47.896 Other spondylosis, lumbar region; M54.5 Low back pain; G54.6 Phantom limb syndrome with pain; M51.37 Other intervertebral disc degeneration, lumbosacral region; M51.27 Other intervertebral disc displacement, lumbosacral region; F45.42 Pain disorder with related psychological factors; M47.27 Other spondylosis with radiculopathy, lumbosacral region; M41.84 Other forms of scoliosis, thoracic region; Z79.51 Long term (current) use of inhaled steroids; Z79.891 Long term (current) use of opiate analgesic; Z79.899 Other long term (current) drug therapy
CPT/HCPCS: 93005; 36415; 85027; 85610; 85730; 81001; 71046; 72080; 93010; 00300; 63685; 63650; C1778; C1820 ×2; J2250; J3490 ×4; J0690 ×2; J3010; J2704; J0131; 300

== ENCOUNTER 2020-05-30 16:53 | Emergency (ER) | payer OTHER ==
[2020-05-30] MEDS ORDERED: ONDANSETRON HCL INJ/PF 4 MG/2 ML SDV IV ONE (18:09)
[2020-05-30] MEDS ORDERED: NORMAL SALINE 1000 ML 1,000 ML IV ONE (18:09)
--- NOTE | 2020-05-30 18:24 | ER Document Report ---
ED GI/ - General Chief Complaint: Nausea/Vomiting/Diarrhea Stated Complaint: NAUSEA/VOMITING Time Seen by Provider: 05/30/20 17:18 Primary Care Provider: MALU,JAIMIE [Primary Care Provider] - Follow up as needed Mode of Arrival: Ambulatory Information source: Patient Notes: Patient is a 30-year-old male who comes the emergency room complaining of 2 days of vomiting with 1 week of having diarrhea. Patient states that both his vomitus and his diarrhea has had some red streaks in them. Also complains of bilateral lower quadrant discomfort and pain. 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 Patient denies having any fevers also has a history of hypertension which is treated for medication with has had no surgeries in the bili besides a pyloric stenosis stretching. Patient denies any known contact with COVID patients or people diagnosed with COVID. TRAVEL OUTSIDE OF THE [place] IN LAST 30 DAYS: No - HPI Patient complains to provider of: Abdominal pain, Diarrhea, Vomiting. No: Dysuria Onset: Other - 2 days of vomiting Timing/Duration: Sudden, Constant, Persistent Quality of pain: Achy Severity at maximum: Moderate Severity in ED: Moderate Pain Level: 3 Context: denies: Bad food Location: [facility] Sexual history: Active, Unprotected intercourse. denies: STD exposure Associated symptoms: Blood in emesis, Blood in stool, Diarrhea, Vomiting. denies: Chest pain, Chills, Dysuria, Hard stool, Urinary hesitancy, Urinary frequency, Urinary retention, Urinary urgency Exacerbated by: Denies Relieved by: Denies Similar symptoms previously: No Recently seen / treated by doctor: No - Related Data Allergies/Adverse Reactions: meperidine [From Demerol] Allergy (Severe, Verified 07/15/19 07:42) Anaphylaxis oxycodone Allergy (Verified 07/15/19 07:42) Hives Home Medications: edita. famotidine. lisinopril. prozosyn. Dilaudid. prevacid. tizandidine. symbalta. lyrica Past Medical History - General Information source: Patient - Social History Smoking Status: Current Every Day Smoker Chew tobacco use (# tins/day): No Smoking Education Provided: Yes Frequency of alcohol use: Occasional Drug Abuse: None Lives with: Family Family History: Reviewed & Not Pertinent Patient has homicidal ideation: No - Past Medical History Cardiac Medical History: Reports: Hx Hypertension - PO MEDS Denies: Hx Coronary Artery Disease, Hx Heart Attack Pulmonary Medical History: Reports: Hx Asthma - MILD, Hx Bronchitis Denies: Hx COPD, Hx Pneumonia Neurological Medical History: Denies: Hx Cerebrovascular Accident, Hx Seizures Renal/ Medical History: Denies: Hx Peritoneal Dialysis Musculoskeletal Medical History: Reports Hx Arthritis Past Surgical History: Reports: Hx Orthopedic Surgery - right lower [id number] - Immunizations Hx Diphtheria, Pertussis, Tetanus Vaccination: Yes Review of Systems - Review of Systems Constitutional: denies: Fever EENT: No symptoms reported Cardiovascular: No symptoms reported, Other Respiratory: No symptoms reported Gastrointestinal: See HPI, Abdominal pain, Diarrhea, Nausea, Vomiting, Blood in vomit Genitourinary: No symptoms reported Male Genitourinary: No symptoms reported Musculoskeletal: No symptoms reported Skin: No symptoms reported Hematologic/Lymphatic: No symptoms reported Neurological/Psychological: No symptoms reported -: Yes All other systems reviewed and negative Physical Exam - Vital signs Vitals: Temp Pulse Resp BP Pulse Ox 98.8 F 124 H 18 130/76 H 98 05/30/20 17:10 05/30/20 17:10 05/30/20 17:10 05/30/20 17:10 05/30/20 17:10 Interpretation: Hypertensive, Tachycardic - Notes Notes: PHYSICAL EXAMINATION: GENERAL: Patient is a well-nourished well-developed 30-year-old male no apparent distress on physical exam. HEAD: Atraumatic, normocephalic. EYES: Pupils equal round and reactive to light, extraocular movements intact, sclera anicteric, conjunctiva are normal. ENT: Nares patent, oropharynx clear without exudates. Moist mucous membranes. NECK: Normal range of motion, supple without lymphadenopathy LUNGS: Breath sounds clear to auscultation bilaterally and equal. No wheezes rales or rhonchi. HEART: Tachycardic rhythm without murmurs ABDOMEN: Examination patient's abdomen shows that he has bowel sounds in all 4 quads though there are decreased. Patient has moderate amount of tenderness in right lower quadrant and clementina-umbilically. He has some rebound noted in the area as well. Has mild obturator. Mild psoas. No flank pain to percussion. Musculoskeletal: Normal range of motion, no pitting or edema. No cyanosis. Patient has 1 AKA on the right side of the body. NEUROLOGICAL: . Normal speech, normal gait. Normal sensory, motor exams PSYCH: Normal mood, normal affect. SKIN: Warm, Dry, normal turgor, no rashes or lesions noted. Course - Re-evaluation Re-evalutation: 05/30/20 21:28 Patient has been requesting multiple meds. He kept telling us that he has been nauseated and vomiting but has not vomited his entire time here in the ER. He is received here 8 mg of Zofran, 50 mg of Benadryl and 10 mg of Reglan. Patient states he still nauseated. Then he kept asking for pain medications. He did not inform me that he is in pain management I looked him up on [facility] aware and patient is getting fairly heavy doses of pain medications. Currently he is received on 05/24/2020 hydromorphone 2 mg tablets #90 he also receives Lyrica 300mg capsules 60 and Lasecki is a regular amount of medications that he gets every month. But he did not inform me of this. I am presuming he assumed that because he has an AKA that I assumed that he was on pain medications. When asked him about he said he forgot to tell me. Given that he has a clear contrast study CT and all of his labs are normal I am sending patient home with the Reglan. I have informed him I cannot give him any other pain medication he is getting more from his pain management that I can give here in ER. And I am not able to find anything to treat for pain and discomfort. - Vital Signs Vital signs: Temp Pulse Resp BP Pulse Ox 98.8 F 86 14 118/68 96 05/30/20 17:10 05/30/20 21:38 05/30/20 21:38 05/30/20 21:38 05/30/20 21:38 - Laboratory Result Diagrams: 05/30/20 18:08 05/30/20 18:08 Laboratory results interpreted by me: 05/30/20 18:08 RDW 14.3 H Discharge - Discharge Clinical Impression: Vomiting Qualifiers: Vomiting type: unspecified Vomiting Intractability: non-intractable Nausea p resence: with nausea Qualified Code(s): R11.2 - Nausea with vomiting, unspecified Condition: Stable Disposition: HOME, SELF-CARE Instructions: Antinausea Medication ([facility]), Gastroenteritis (adult) ([facility]), Reglan ([facility]) Additional Instructions: As we discussed your CT is normal as is your lab work. At this time there is nothing else I can think of to do at the emergency room. Continue with your home pain medications the hydromorphone and the Lyrica and [facility] and reevaluation. I will write you for some Reglan since he said that helped the most. But just remember you can take Benadryl 50 mg every 6 hours to help with nausea as well. Should you have any other concerns or problems you can return to ER for reevaluation. Also for the next 24 hours I would do just a very bland clear liquid diet give her stomach arrest. Sipping a Gatorade only for the first 12 hours of that. Then you can expand it very subtly. I would not suggest eating a full dinner for about 48 hours. Prescriptions: Metoclopramide HCl [Reglan 10 mg Tablet] 10 mg PO ACHS PRN #30 tablet PRN Reason: Forms: Elevated Blood Pressure, Smoking Cessation Education Referrals: [facility] [Primary [facility]] - Follow up as needed
[2020-05-30 18:38] LABS: ABSOLUTE BASOPHILS # (AUTO) 0.1 10^3/uL (0.0-0.2); ABSOLUTE EOSINOPHILS # (AUTO) 0.2 10^3/uL (0.0-0.6); ABSOLUTE LYMPHOCYTES (AUTO) 2.1 10^3/uL (0.5-4.7); ABSOLUTE MONOCYTES (AUTO) 0.9 10^3/uL (0.1-1.4); ABSOLUTE NEUT (AUTO) 6.6 10^3/uL (1.7-8.2); BASOPHILS % (AUTO) 0.7 % (0-2); EOSINOPHILS % (AUTO) 2.3 % (0-6); HEMATOCRIT 45.1 % (37.9-51.0); HEMOGLOBIN 15.1 g/dL (13.5-17.0); LYMPHOCYTES % (AUTO) 21.1 % (13-45); MEAN CORPUSCULAR HEMOGLOBIN 28.3 pg (27.0-33.4); MEAN CORPUSCULAR HGB CONC 33.5 g/dL (32.0-36.0); MEAN CORPUSCULAR VOLUME 85 fl (80-97); MONOCYTES % (AUTO) 8.8 % (3-13); PLATELET COUNT 199 10^3/uL (150-450); RED BLOOD COUNT 5.34 10^6/uL (4.35-5.55); RED CELL DISTRIBUTION WIDTH 14.3 % (11.5-14.0); SEGMENTED NEUTROPHILS % (AUTO) 67.1 % (42-78); TOTAL CELLS COUNTED % (AUTO) 100 %; WHITE BLOOD COUNT 9.8 10^3/uL (4.0-10.5)
[2020-05-30 18:40] LABS: APPEARANCE,URINE CLEAR; BILIRUBIN,URINE NEGATIVE (NEGATIVE); COLOR,URINE YELLOW; GLUCOSE, URINE NEGATIVE (NEGATIVE); KETONES,URINE NEGATIVE (NEGATIVE); LEUKOCYTE ESTERASE,URINE NEGATIVE (NEGATIVE); NITRITE,URINE NEGATIVE (NEGATIVE); PROTEIN,URINE NEGATIVE (NEGATIVE); URINE SPECIFIC GRAVITY 1.012; UROBILINOGEN,URINE NEGATIVE mg/dL (<2.0)
[2020-05-30] MEDS ORDERED: DIPHENHYDRAMINE HCL 50 MG/ML VIAL IV ONE (18:48)
[2020-05-30] MEDS ORDERED: KETOROLAC TROMETHAMINE INJ/PF 30 MG/1 ML SDV IV ONE (18:48)
[2020-05-30 18:55] LABS: ALBUMIN 4.5 g/dL (3.5-5.0); ALKALINE PHOSPHATASE 64 U/L (38-126); ANION GAP 7 (5-19); ASPARTATE AMINO TRANSFERASE 20 U/L (17-59); BILIRUBIN,TOTAL 0.4 mg/dL (0.2-1.3); BLOOD UREA NITROGEN 15 mg/dL (7-20); CARBON DIOXIDE 26 mmol/L (22-30); CHLORIDE 107 mmol/L (98-107); GLUCOSE 108 mg/dL (75-110); POTASSIUM 4.3 mmol/L (3.6-5.0); TOTAL PROTEIN 7.6 g/dL (6.3-8.2)
[2020-05-30] MEDS ORDERED: METOCLOPRAMIDE HCL INJ/PF 10 MG/2 ML SDV IV ONE (20:47)
--- NOTE | 2020-05-30 21:03 | RADIOLOGY REPORT (SQ) ---
CLINICAL INDICATION: right lower quad pain, with vomiting and diarrhea. . TECHNIQUE: Contrast enhanced spiral axial CT imaging was obtained of the abdomen and pelvis with multiplanar reconstructions. This exam was performed according to our departmental dose-optimization program, which includes automated exposure control, adjustment of the mA and/or kV according to patient size and/or use of iterative reconstruction techniques. COMPARISON: None. CORRELATION: Chest CT February 03, 2019. FINDINGS: Abdomen: The lung bases demonstrate streaky airspace disease left lung base. The heart is of normal size. No evidence of pleural or pericardial fluid. The liver is of normal size contour and attenuation. The gallbladder is nondistended without inflammatory change. The pancreas is unremarkable. The spleen is unremarkable. The adrenals are unremarkable. The kidneys appear grossly normal without evidence of urolithiasis or hydronephrosis. There is no evidence of free air. No free fluid. No bulky adenopathy. Abdominal aorta is nonaneurysmal. Pelvis: The bowel is nonobstructed. The bowel is unopacified with oral contrast. Pelvic contents are unremarkable. The appendix is normal. Visualized bones are within normal limits for age. Thoracic neurostimulator. IMPRESSION: No acute intra-abdominal process..
[2020-05-30 21:39] VITALS: BP 118/68
== END 2020-05-30 21:39 | disposition home or self-care (01) ==
LOC: ER 16:53
DX: K92.0 Hematemesis (principal); K92.1 Melena; R19.7 Diarrhea, unspecified; R10.31 Right lower quadrant pain; R10.32 Left lower quadrant pain; R00.0 Tachycardia, unspecified; I10 Essential (primary) hypertension; F17.200 Nicotine dependence, unspecified, uncomplicated; J45.909 Unspecified asthma, uncomplicated; Z79.899 Other long term (current) drug therapy; Z79.891 Long term (current) use of opiate analgesic; Z87.892 Personal history of anaphylaxis; Z88.6 Allergy status to analgesic agent; Z88.5 Allergy status to narcotic agent; Z89.611 Acquired absence of right leg above knee; Z20.828 Contact with and (suspected) exposure to other viral communicable diseases
CPT/HCPCS: 99284; 96361; 96374; 96375; 36415; 87086; 83690; 85025; 87635; 87088; 80053; 81001; 74177; J1200; J1885; J2765; J2405; J7030; C9803

== ENCOUNTER 2020-07-11 14:43 | Inpatient (IN) | payer OTHER ==
[2020-07-11] MEDS ORDERED: RINGERS SOLUTION,LACTATED 2,000 ML IV ONE (15:02)
--- NOTE | 2020-07-11 15:08 | ER Document Report ---
ED Medical Screen (RME) - General Chief Complaint: Altered Mental Status Stated Complaint: ALTERED MENTAL STATUS Time Seen by Provider: 07/11/20 14:55 Primary Care Provider: JAIMIE TORIBIO [Primary Care Provider] - Follow up as needed Notes: Patient's rapid strep was positive. Influenza a and B were negative. Patient was already treated with penicillin. Her results patient is a 30-year-old male who presents the emergency department with a chief complaint of altered mental status. Patient states that he sometimes is unable to speak. Patient states that he has history of hypertension. He normally takes lisinopril. States that he has had about 4 months of nausea, vomiting, and diarrhea. Patient has history of prosthetic leg. Denies any contact with anybody with COVID-19. States that he has some polyuria. Exam: During assessment, the patient started to have jerking movements and stop speaking. He was immediately brought back to a room by this provider and orders were placed. Patient will receive IV fluids. Blood pressure is 53/25 in triage. I have greeted and performed a rapid initial assessment of this patient. A comprehensive ED assessment and evaluation of the patient, analysis of test res ults and completion of medical decision making process will be conducted by an additional ED providers. TRAVEL OUTSIDE OF THE [place] IN LAST 30 DAYS: No - Related Data Allergies/Adverse Reactions: meperidine [From Demerol] Allergy (Severe, Verified 07/15/19 07:42) Anaphylaxis oxycodone Allergy (Verified 07/15/19 07:42) Hives Past Medical History - Past Medical History Cardiac Medical History: Reports: Hx Hypertension - PO MEDS Denies: Hx Coronary Artery Disease, Hx Heart Attack Pulmonary Medical History: Reports: Hx Asthma - MILD, Hx Bronchitis Denies: Hx COPD, Hx Pneumonia Neurological Medical History: Denies: Hx Cerebrovascular Accident, Hx Seizures Renal/ Medical History: Denies: Hx Peritoneal Dialysis Musculoskeltal Medical History: Reports Hx Arthritis Past Surgical History: Reports: Hx Orthopedic Surgery - right lower [id number] - Immunizations Hx Diphtheria, Pertussis, Tetanus Vaccination: Yes Physical Exam - Vital signs Vitals: Temp Pulse Resp BP Pulse Ox 97.8 F 93 18 53/25 L 100 07/11/20 14:51 07/11/20 14:51 07/11/20 14:51 07/11/20 14:51 07/11/20 14:51 Course - Vital Signs Vital signs: Temp Pulse Resp BP Pulse Ox 97.8 F 93 18 53/25 L 100 07/11/20 14:51 07/11/20 14:51 07/11/20 14:51 07/11/20 14:51 07/11/20 14:51 Doctor's Discharge - Discharge [facility]errals: [facility] [[facility] - Follow up as needed
[2020-07-11 15:26] LABS: ABSOLUTE BASOPHILS # (AUTO) 0.1 10^3/uL (0.0-0.2); ABSOLUTE EOSINOPHILS # (AUTO) 0.1 10^3/uL (0.0-0.6); ABSOLUTE LYMPHOCYTES (AUTO) 1.4 10^3/uL (0.5-4.7); ABSOLUTE MONOCYTES (AUTO) 0.8 10^3/uL (0.1-1.4); ABSOLUTE NEUT (AUTO) 8.8 10^3/uL (1.7-8.2); BASOPHILS % (AUTO) 0.6 % (0-2); EOSINOPHILS % (AUTO) 0.5 % (0-6); HEMATOCRIT 39.8 % (37.9-51.0); HEMOGLOBIN 13.1 g/dL (13.5-17.0); LYMPHOCYTES % (AUTO) 12.9 % (13-45); MEAN CORPUSCULAR HGB CONC 32.9 g/dL (32.0-36.0); MEAN CORPUSCULAR VOLUME 85 fl (80-97); PLATELET COUNT 282 10^3/uL (150-450); RED BLOOD COUNT 4.68 10^6/uL (4.35-5.55); RED CELL DISTRIBUTION WIDTH 13.6 % (11.5-14.0); TOTAL CELLS COUNTED % (AUTO) 100 %; WHITE BLOOD COUNT 11.2 10^3/uL (4.0-10.5)
--- NOTE | 2020-07-11 15:40 | RADIOLOGY REPORT (SQ) ---
EXAM DESCRIPTION: CHEST SINGLE VIEW IMAGES COMPLETED DATE/TIME: 07/11/2020 3:17 pm REASON FOR STUDY: Low blood pressure; sepsis workup COMPARISON: Chest radiograph 07/08/2019 NUMBER OF VIEWS: One view. TECHNIQUE: Single frontal radiographic view of the chest acquired. LIMITATIONS: None. FINDINGS: LUNGS AND PLEURA: No opacities, masses or pneumothorax. No pleural effusion. MEDIASTINUM AND HILAR STRUCTURES: No masses. Contour normal. HEART AND VASCULAR STRUCTURES: Heart normal in size. Normal vasculature. BONES: No acute findings. HARDWARE: None in the chest. OTHER: No other significant finding. IMPRESSION: NO SIGNIFICANT RADIOGRAPHIC FINDING IN THE CHEST. TECHNICAL DOCUMENTATION: JOB ID: [id number] [employer]- All Rights Reserved Reading location - IP/workstation name: [email or web address]
[2020-07-11 15:43] LABS: ALBUMIN 4.2 g/dL (3.5-5.0); ALKALINE PHOSPHATASE 77 U/L (38-126); ANION GAP 13 (5-19); ASPARTATE AMINO TRANSFERASE 15 U/L (17-59); BILIRUBIN,DIRECT 0.4 mg/dL (0.0-0.4); BILIRUBIN,TOTAL 0.5 mg/dL (0.2-1.3); BLOOD UREA NITROGEN 18 mg/dL (7-20); CALCIUM 9.9 mg/dL (8.4-10.2); CARBON DIOXIDE 19 mmol/L (22-30); CHLORIDE 108 mmol/L (98-107); GLUCOSE 98 mg/dL (75-110); POTASSIUM 4.5 mmol/L (3.6-5.0); TOTAL PROTEIN 7.2 g/dL (6.3-8.2)
[2020-07-11 15:46] LABS: VENOUS BLOOD BASE EXCESS -8.2 mmol/L; VENOUS BLOOD HCO3 18.1 mmol/L (20-32); VENOUS BLOOD PCO2 40.1 mmHg (35-63); VENOUS BLOOD PH 7.27 (7.30-7.42)
[2020-07-11] MEDS ORDERED: DEXTROSE 5%-LACTATED RINGERS 1,000 ML IV ONE (16:45)
--- NOTE | 2020-07-11 17:22 | ER Document Report ---
Entered by ZACK GILLIAM SCRIBE 07/11/20 1553 Acting as scribe for:SHIRA YANG MD ED General - General Chief Complaint: Low Blood Pressure Stated Complaint: ALTERED MENTAL STATUS Time Seen by Provider: 07/11/20 14:55 Mode of Arrival: Ambulatory Information source: Patient Notes: This 30 year old male patient presents to the emergency department today with complaints of feeling generally "drained", intermittent episodes of near syncope when standing up for the last four to five months, and excessive urination for the last month. He reports that he urinates large volumes frequently throughout the day and at night. He is hypotensive on arrival here. TRAVEL OUTSIDE OF THE [place] IN LAST 30 DAYS: No - Related Data Allergies/Adverse Reactions: meperidine [From Demerol] Allergy (Severe, Verified 07/11/20 15:25) Anaphylaxis oxycodone Allergy (Verified 07/11/20 15:25) Hives Past Medical History - General Information source: Patient - Social History Smoking Status: Former Smoker Chew tobacco use (# tins/day): No Frequency of alcohol use: Social Drug Abuse: None Family History: Reviewed & Not Pertinent - Past Medical History Cardiac Medical History: Reports: Hx Hypertension - PO MEDS Pulmonary Medical History: Reports: Hx Asthma - MILD, Hx Bronchitis Musculoskeletal Medical History: Reports Hx Arthritis Past Surgical History: Reports: Hx Orthopedic Surgery - right lower [id number] with eventual AKA - Immunizations Hx Diphtheria, Pertussis, Tetanus Vaccination: Yes Review of Systems - Review of Systems Constitutional: See HPI, Malaise, Weakness EENT: No symptoms reported Cardiovascular: See HPI, Syncope - near syncope Respiratory: No symptoms reported Gastrointestinal: No symptoms reported Genitourinary: No symptoms reported Male Genitourinary: No symptoms reported Musculoskeletal: No symptoms reported Skin: No symptoms reported Hematologic/Lymphatic: No symptoms reported Neurological/Psychological: See HPI, Other - altered mental status -: Yes All other systems reviewed and negative Physical Exam - Vital signs Vitals: Temp Pulse Resp Pulse Ox 97.8 F 93 18 100 07/11/20 14:51 07/11/20 14:51 07/11/20 14:51 07/11/20 14:51 - Notes Notes: Physical Exam: General: Alert, appears well. Wearing sunglasses. HEENT: Normocephalic. Atraumatic. PERRL. Extraocular movements intact. Oropharynx clear. Neck: Supple. Non-tender. Respiratory: No respiratory distress. Clear and equal breath sounds bilaterally. Cardiovascular: Regular rate and rhythm. Abdominal: Normal Inspection. Non-tender. No distension. Normal Bowel Sounds. Back: No gross abnormalities. Extremities: Moves all four extremities. Upper extremities: Normal inspection. Normal ROM. Lower extremities: Right AKA. Neurological: Normal cognition. AAOx4. Normal speech. Psychological: Normal affect. Normal Mood. Skin: Warm. Dry. Normal color. Course - Vital Signs Vital signs: Temp Pulse Resp BP Pulse Ox 97.8 F 93 19 115/63 97 07/11/20 14:51 07/11/20 14:51 07/11/20 20:21 07/11/20 20:21 07/11/20 20:21 - Laboratory Result Diagrams: 07/11/20 15:05 07/11/20 15:05 Laboratory results interpreted by me: 07/11/20 07/11/20 07/11/20 15:05 15:05 15:05 WBC 11.2 H Hgb 13.1 L Lymph % (Auto) 12.9 L Absolute Neuts (auto) 8.8 H Seg Neutrophils % 79.0 H VBG pH VBG HCO3 Chloride 108 H Carbon Dioxide 19 L Creatinine 3.42 H Est GFR ( Amer) 26 L Est GFR (MDRD) Non-Af 22 L Lactic Acid 3.8 H AST 15 L Urine Glucose (UA) 07/11/20 07/11/20 15:34 18:00 WBC Hgb Lymph % (Auto) Absolute Neuts (auto) Seg Neutrophils % VBG pH 7.27 L VBG HCO3 18.1 L Chloride Carbon Dioxide Creatinine Est GFR ( Amer) Est GFR (MDRD) Non-Af Lactic Acid AST Urine Glucose (UA) 50 H - Diagnostic Test Radiology reviewed: Image reviewed, Reports reviewed - Noncontrasted CT scan abdomen pelvis does not show acute changes. - EKG Interpretation by Me EKG shows normal: Sinus rhythm, [place], Intervals, QRS Complexes, ST-T Waves Rate: Tachycardia - 105 Critical Care Note - Critical Care Note Total time excluding time spent on procedures (mins): 35 Comments: At least 35 minutes spent evaluating the patient, reviewing prior lab work and medical history. Multiple re-evaluations is he was being hydrated and blood pressure was being brought back to an acceptable level. Patient's initial blood pressure was as low as 60/37 and 61/34. Consultation with the hospitalist service. Discharge - Discharge Clinical Impression: Near syncope, Metabolic acidosis Hypotension Qualifiers: Hypotension type: unspecified hypotension type Qualified Code(s): I95.9 - Hypotension, unspecified Acute renal failure Qualifiers: Acute renal failure type: unspecified Qualified Code(s): N17.9 - Acute kidney failure, unspecified Condition: Good Disposition: ADMITTED INPATIENT Admitting Provider: Rebeca (Hospitalist) Unit Admitted: Telemetry I personally performed the services described in the documentation, reviewed and edited the documentation which was dictated to the scribe in my presence, and it accurately records my words and actions.
[2020-07-11 18:40] LABS: APPEARANCE,URINE CLEAR; BILIRUBIN,URINE NEGATIVE (NEGATIVE); COLOR,URINE YELLOW; GLUCOSE, URINE 50 mg/dL (NEGATIVE); KETONES,URINE NEGATIVE (NEGATIVE); LEUKOCYTE ESTERASE,URINE NEGATIVE (NEGATIVE); NITRITE,URINE NEGATIVE (NEGATIVE); PROTEIN,URINE NEGATIVE (NEGATIVE); URINE SPECIFIC GRAVITY 1.004; UROBILINOGEN,URINE NEGATIVE mg/dL (<2.0)
[2020-07-11] MEDS ORDERED: HYDROMORPHONE HCL INJ/PF 2 MG/ML AMPULE IV ONE (19:01)
--- NOTE | 2020-07-11 19:39 | RADIOLOGY REPORT (SQ) ---
EXAM DESCRIPTION: CT ABD/PELVIS NO ORAL OR IV IMAGES COMPLETED DATE/TIME: 07/11/2020 7:27 pm REASON FOR STUDY: Acute renal failure COMPARISON: 02/03/2019 TECHNIQUE: CT scan of the abdomen and pelvis performed without intravenous or oral contrast. Images reviewed with lung, soft tissue, and bone windows. Reconstructed coronal and sagittal MPR images revi ewed. All images stored on PACS. All CT scanners at this facility use dose modulation, iterative reconstruction, and/or weight based d osing when appropriate to reduce radiation dose to as low as reasonably achievable (ALARA). [facility]: Dose Right [facility]: CareDose [facility]: Dose Right [facility]: Teradose 4D [facility]: Smart [employer] RADIATION DOSE: mGy. LIMITATIONS: None. FINDINGS: LOWER CHEST: Bibasilar atelectasis. No focal consolidation, pleural effusion, or pneumoth orax. NON-CONTRASTED LIVER, SPLEEN, ADRENALS: Evaluation limited by lack of IV contrast. No identified sign ificant masses. PANCREAS: No masses. No peripancreatic inflammatory changes. GALLBLADDER: No identified stones by CT criteria. No inflammatory changes to suggest cholecystitis. RIGHT KIDNEY AND URETER: No suspicious masses. Assessment limited by lack of IV contrast. No signif icant calcifications. No hydronephrosis or hydroureter. LEFT KIDNEY AND URETER: No suspicious masses. Assessment limited by lack of IV contrast. No signifi cant calcifications. No hydronephrosis or hydroureter. AORTA AND RETROPERITONEUM: No aneurysm. No retroperitoneal masses or adenopathy. BOWEL AND PERITONEAL CAVITY: No obvious masses or inflammatory changes. No free fluid. APPENDIX: Normal. PELVIS, BLADDER, AND ABDOMINAL WALL:No abnormal masses. No free fluid. Bladder normal. BONES: No significant findings. OTHER: Epidural neurostimulator leads enter the thecal sac at the T12/L1 level and terminate at the T 9 and T10 levels. IMPRESSION: No findings to correlate to the patient's reported renal failure. No evidence of acute intra-abdominal infectious/inflammatory process. COMMENT: Quality ID # [id number]: Final reports with documentation of one or more dose reduction techniques (e.g., Automated exposure control, adjustment of the mA and/or kV according to patient size, use of iterative reconstruction technique) TECHNICAL DOCUMENTATION: JOB ID: [id number] 2010 [employer]- All Rights Reserved Reading location - [facility]station [email or web address]
[2020-07-11 20:20] LABS: URINE AMPHETAMINES SCREEN NEGATIVE; URINE BARBITURATES SCREEN NEGATIVE; URINE BENZODIAZEPINES SCREEN NEGATIVE; URINE COCAINE SCREEN NEGATIVE; URINE MARIJUANA (THC) SCREEN NEGATIVE; URINE METHADONE SCREEN NEGATIVE; URINE PHENCYCLIDINE SCREEN NEGATIVE
[2020-07-11] MEDS ORDERED: NICOTINE 21 MG/24 HR PATCH.TD24 TD PRN (21:02)
[2020-07-11] MEDS ORDERED: HYDROMORPHONE HCL INJ/PF 2 MG/ML AMPULE IV PRN ×4 (21:02→22:42)
[2020-07-11] MEDS ORDERED: GUAIFENESIN SYRP 200 MG/10 ML UDC PO PRN (21:02)
[2020-07-11] MEDS ORDERED: MAG HYDROX/AL HYDROX/SIMETH SUSP 30 ML UDCUP PO PRN (21:02)
[2020-07-11] MEDS ORDERED: MAGNESIUM HYDROXIDE SUSP 30 ML UDCUP PO PRN (21:02)
[2020-07-11] MEDS ORDERED: LORAZEPAM INJ 2 MG/1 ML VIAL IV PRN (21:02)
[2020-07-11] MEDS ORDERED: LEVALBUTEROL HCL NEB 0.63 MG/3 ML AMPUL NEB PRN (21:04)
[2020-07-11] MEDS ORDERED: DEXTROSE 5%-LACTATED RINGERS 1,000 ML IV PRN (21:04)
[2020-07-11] MEDS ORDERED: ONDANSETRON HCL INJ/PF 4 MG/2 ML SDV IV PRN (21:04)
[2020-07-11] MEDS: ACETAMINOPHEN 325 MG TABLET PO PRN (22:42)
[2020-07-11] MEDS: HEPARIN SOD (PORCINE) 5,000 UNIT/ML 1 ML VIAL SUBCUT SCH (22:43)
[2020-07-11] MEDS: HYDROMORPHONE HCL INJ/PF 2 MG/ML AMPULE IV PRN (23:06)
[2020-07-11] MEDS: MELATONIN 5 MG TABLET PO PRN (23:06)
--- NOTE | 2020-07-12 02:45 | EKG REPORT ---
SEVERITY:- OTHERWISE NORMAL ECG - SINUS TACHYCARDIA : Confirmed by: Joe Feliciano MD 12-Jul-2020 02:44:33
[2020-07-12] MEDS ORDERED: DIPHENHYDRAMINE HCL 50 MG/ML VIAL IV PRN (03:52)
[2020-07-12] MEDS ORDERED: CHLORPROMAZINE HCL INJ 25 MG/1 ML AMPULE IV PRN (03:58)
--- NOTE | 2020-07-12 04:09 | PDOC H&P ---
History of Present Illness Admission Date/PCP: 07/11/20 19:59 MD CLINIC Patient complains of: Lightheadedness History of Present Illness: MANJEET CAHU is a 30 year old male who presented to the emergency room with a 5-month history of intermittent lightheadedness. He admits being lightheaded at times without regard to position over the course of the last 5 months. His lightheadedness has been accompanied by chronic fatigue and has been associated with increased thirst, polydipsia, photosensitivity, frequent nocturia as well as episodic nausea with vomiting and diarrhea. He denies other associated or accompanying signs and symptoms. He denies prior similar episodes. He has not identified any aggravating or ameliorating factors for his lightheadedness. Patient is a very poor historian and his complaints are quite variable depending on the interviewer. In the emergency room he was found to have a metabolic acidosis with a pH of 7.27 and a CO2 of 19 with a lactic acid of 3.8. He was also noted to have a creatinine of 3.43 which is increased over his baseline of ~1.0, however, his BUN was 18. He was noted to be hypotensive with a systolic pressure in the 70s that responded well to IV fluids. Patient was subsequently admitted to the hospital for further evaluation and treatment. Past Medical History Cardiac Medical History: Reports: Hyperlipidema, Hypertension Denies: Atrial Fibrillation, Coronary Artery Disease, DVT, Myocardial Infarction, Pulmonary Embolism Pulmonary Medical History: Reports: Asthma - Mild intermittent, Bronchitis Denies: Chronic Obstructive Pulmonary Disease (COPD), Pneumonia EENT Medical History: Denies: Cataracts, Ears - Hearing aids Neurological Medical History: Reports: Migraine, Other - Status post spinal neurostimulator Denies: Hemorrhagic CVA, Ischemic CVA, Seizures Endocrine Medical History: Reports: Obesity Denies: Diabetes Mellitus Type 1, Diabetes Mellitus Type 2, Hyperthyroidism, Hypothyroidism Renal/ Medical History: Reports: Other - Erectile dysfunction Denies: Chronic Kidney Disease, Nephrolithiasis Malignancy Medical History: Reports: None GI Medical History: Reports: Gastroesophageal Reflux Disease Denies: Cirrhosis, Hepatitis, Peptic Ulcer Disease Musculoskeltal Medical History: Reports: Arthritis, Other - Chronic pain, phantom pain Denies: Gout Skin Medical History: Reports: Other - Multiple skin hypersensitivities Denies: Eczema, Psoriasis Psychiatric Medical History: Reports: Depression, Post Traumatic Stress Disorder, Tobacco Dependency Denies: Alcohol Dependency, Substance Abuse Traumatic Medical History: Reports: None Hematology: Denies: Anemia, Bleeding Tendencies Infectious Medical History: 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, Other Past Surgical History Past Surgical History: Reports: Orthopedic Surgery - right lower extremity x19 with eventual AKA and subsequent revision, Tonsillectomy, Other - "Stomach surgery", spinal stimulator Social History Information Source: Patient Lives with: Spouse/Significant other, Friend Smoking Status: Former Smoker Electronic Cigarette use?: Yes - Vapes to help him stop smoking Frequency of Alcohol Use: Occasional Hx Recreational Drug Use: No Drugs: None Hx Prescription Drug Abuse: No - Advance Directive Resuscitation Status: Full Code Surrogate healthcare decision maker:: Jasbir Correa Family History Family History: COPD - Respiratory distress syndrome, Hyperlipidemia, Hypertension, Other - Depression. denies: CAD, CVA, DM, Malignancy, Thyroid Disfunction Parental Family History Reviewed: Yes Children Family History Reviewed: No Sibling(s) Family History Reviewed.: Yes Medication/Allergy Home Medications: Albuterol Sulfate [Ventolin HFA MDI 18 GM] 2 puff IH Q8 06/19/18 Duloxetine HCl [Cymbalta] 60 mg PO Q12 06/19/18 Hydromorphone HCl [Hydromorphone ER] 8 mg PO QPM 06/19/18 Lansoprazole [Prevacid] 30 mg PO DAILY 06/19/18 Loratadine 10 mg PO QHS 06/19/18 Ranitidine HCl 150 mg PO BID 06/19/18 Tizanidine HCl 8 mg PO TID 06/19/18 Topiramate 100 mg PO Q12 06/19/18 Budesonide/Formoterol Fumarate [Symbicort Hfa 160-4.5 Mcg Inhaler 6 gm] 2 puff IH Q12 07/08/19 Escitalopram Oxalate [Lexapro] 20 mg PO DAILY 07/08/19 Metoprolol Tartrate [Lopressor 25 mg Tablet] 12.5 mg PO Q12 07/08/19 Prazosin HCl 5 mg PO HSP PRN 07/08/19 Pregabalin [Lyrica] 300 mg PO BID 07/08/19 Metoclopramide HCl [Reglan 10 mg Tablet] 10 mg PO ACHS PRN #30 tablet 05/30/20 Allergies/Adverse Reactions: meperidine [From Demerol] Allergy (Severe, Verified 07/11/20 15:25) Anaphylaxis oxycodone Allergy (Verified 07/11/20 15:25) Hives Review of Systems Constitutional: PRESENT: as per HPI, fatigue, headache(s) - Migraines, weakness - Generalized. ABSENT: chills, fever(s) Eyes: ABSENT: visual disturbances, other - Eye pain Ears: ABSENT: hearing changes, other - Ear pain Nose, Mouth, and Throat: PRESENT: headache(s) - Migraine. ABSENT: sore throat Cardiovascular: PRESENT: other - Lightheadedness. ABSENT: chest pain, palpitations Respiratory: ABSENT: cough, dyspnea Gastrointestinal: PRESENT: as per HPI, diarrhea, nausea, vomiting. ABSENT: abdominal pain, constipation, hematemesis, hematochezia, melena Genitourinary: PRESENT: as per HPI, nocturia. ABSENT: dysuria, hematuria Musculoskeletal: PRESENT: back pain - Chronic, other - Chronic right leg pain/phantom pain Integumentary: ABSENT: pruritus, rash Neurological: ABSENT: confusion, convulsions, focal weakness, memory loss, syncope Psychiatric: ABSENT: anxiety, depression Endocrine: PRESENT: polydipsia. ABSENT: cold intolerance, heat intolerance Hematologic/Lymphatic: ABSENT: easy bleeding, easy bruising Allergic/Immunologic: ABSENT: seasonal rhinorrhea Physical Exam Vital Signs: Temp Pulse Resp BP Pulse Ox 97.8 F 93 19 115/63 97 07/11/20 14:51 07/11/20 14:51 07/11/20 20:21 07/11/20 20:21 07/11/20 20:21 Intake & Output 07/09/20 07/10/20 07/11/20 23:59 23:59 23:59 Weight 88.2 kg General appearance: PRESENT: no acute distress, cooperative, obese Head exam: PRESENT: atraumatic, normocephalic Eye exam: PRESENT: conjunctiva pink. ABSENT: conjunctival injection, scleral ic terus Ear exam: PRESENT: normal external ear exam. ABSENT: bleeding, drainage Mouth exam: PRESENT: dry mucosa, neck supple Neck exam: ABSENT: thyromegaly, tracheal deviation Respiratory exam: PRESENT: clear to auscultation li, symmetrical, unlabored Cardiovascular exam: PRESENT: RRR. ABSENT: clicks, gallop, rubs Pulses: PRESENT: normal radial pulses, normal dorsalis pedis pul - On left Vascular exam: PRESENT: normal capillary refill GI/Abdominal exam: PRESENT: normal bowel sounds, soft Rectal exam: PRESENT: deferred Extremities exam: ABSENT: joint swelling, pedal edema Musculoskeletal exam: PRESENT: other - Status post right AKA. ABSENT: deformity, dislocation Neurological exam: PRESENT: alert, oriented to person, oriented to place, oriented to time, oriented to situation, CN II-XII grossly intact. ABSENT: motor sensory deficit Psychiatric exam: PRESENT: appropriate affect, normal mood Skin exam: PRESENT: dry, intact, warm. ABSENT: jaundice, rash, urticaria Results Laboratory Results: 07/11/20 15:05 07/11/20 15:05 07/11/20 07/11/20 07/11/20 15:05 15:05 15:05 WBC 11.2 H RBC 4.68 Hgb 13.1 L Hct 39.8 MCV 85 MCH 28.0 MCHC 32.9 RDW 13.6 Plt Count 282 Seg Neutrophils % 79.0 H VBG pH VBG pCO2 VBG HCO3 VBG Base Excess Sodium 140.1 Potassium 4.5 Chloride 108 H Carbon Dioxide 19 L Anion Gap 13 BUN 18 Creatinine 3.42 H Est GFR ( Amer) 26 L Glucose 98 Lactic Acid 3.8 H Calcium 9.9 Total Bilirubin 0.5 AST 15 L Alkaline Phosphatase 77 Total Protein 7.2 Albumin 4.2 Urine Color Urine Appearance Urine pH Ur Specific [place] Urine Protein Urine Glucose (UA) Urine Ketones Urine Blood Urine Nitrite Ur Leukocyte Esterase Urine WBC (Auto) Urine RBC (Auto) 07/11/20 07/11/20 15:34 18:00 WBC RBC Hgb Hct MCV MCH MCHC RDW Plt Count Seg Neutrophils % VBG pH 7.27 L VBG pCO2 40.1 VBG HCO3 18.1 L VBG Base Excess -8.2 Sodium Potassium Chloride Carbon Dioxide Anion Gap BUN Creatinine Est GFR ( Amer) Glucose Lactic Acid Calcium Total Bilirubin AST Alkaline Phosphatase Total Protein Albumin Urine Color YELLOW Urine Appearance CLEAR Urine pH 6.0 Ur Specific [place] 1.004 Urine Protein NEGATIVE Urine Glucose (UA) 50 H Urine Ketones NEGATIVE Urine Blood NEGATIVE Urine Nitrite NEGATIVE Ur Leukocyte Esterase NEGATIVE Urine WBC (Auto) 4 Urine RBC (Auto) 4 Impressions: Chest X-Ray 07/11/20 15:03 IMPRESSION: NO SIGNIFICANT RADIOGRAPHIC FINDING IN THE CHEST. Abdomen/Pelvis CT 07/11/20 19:10 IMPRESSION: No findings to correlate to the patient's reported renal failure. No evidence of acute intra-abdominal infectious/inflammatory process. Assessment and Plan - Diagnosis (1) Hypotension due to hypovolemia Is this a current diagnosis for this admission?: Yes (2) Metabolic acidosis Is this a current diagnosis for this admission?: Yes (3) Elevated serum creatinine Is this a current diagnosis for this admission?: Yes (4) Elevated lactic acid level Is this a current diagnosis for this admission?: Yes (5) History of right above knee amputation Is this a current diagnosis for this admission?: Yes (6) Chronic pain syndrome Is this a current diagnosis for this admission?: Yes (7) History of migraine headaches Is this a current diagnosis for this admission?: Yes (8) Posttraumatic stress disorder Is this a current diagnosis for this admission?: Yes (9) Depression Qualifiers: Depression Type: major depressive disorder Major depression recurrence: unspecified whether recurrent Active/Remission status: remission status unspecified Qualified Code(s): F32.9 - Major depressive disorder, single episode, unspecified Is this a current diagnosis for this admission?: Yes (10) Gastroesophageal reflux disease with esophagitis Is this a current diagnosis for this admission?: Yes - Plan Summary Summary: Patient will be admitted to the medical floor on telemetry where he will receive routine supportive and symptomatic cares. He will be treated with IV fluids utilizing D5LR at 167 mL/h. He will receive Dilaudid 0.5 to 2 mg IV every 3 hours as needed for pain. He will receive Ativan 1 mg IV every 4 hours as needed for anxiety or restlessness. A nephrology consultation will be obtained as soon as the nephrology service is again available. Serial lactic acid levels and metabolic profiles will be obtained. Additional laboratory and/or radiographic evaluations will be obtained as needed. Patient will be on a cardiac diet. - Time Time Spent with patient: 15-24 minutes Medications reviewed and adjusted accordingly: Yes Anticipated Discharge Disposition: Home, Self Care Anticipated Discharge Timeframe: within 72 hours - Inpatient Certification Based on my medical assessment, after consideration of the patient's comorbidities, presenting symptoms, or acuity I expect that the services needed warrant INPATIENT care.: Yes I certify that my determination is in accordance with my understanding of Medicare's requirements for reasonable and necessary INPATIENT services [42 CFR 412.3e].: Yes Medical Necessity: Need Close Monitoring Due to Risk of Patient Decompensation, Need For IV Fluids, Need For Continuous Telemetry Monitoring
[2020-07-12 05:55] LABS: HEMATOCRIT 41.3 % (37.9-51.0); MEAN CORPUSCULAR HEMOGLOBIN 28.6 pg (27.0-33.4); MEAN CORPUSCULAR HGB CONC 33.8 g/dL (32.0-36.0); MEAN CORPUSCULAR VOLUME 85 fl (80-97); PLATELET COUNT 185 10^3/uL (150-450); RED BLOOD COUNT 4.88 10^6/uL (4.35-5.55); RED CELL DISTRIBUTION WIDTH 13.6 % (11.5-14.0); WHITE BLOOD COUNT 8.2 10^3/uL (4.0-10.5)
[2020-07-12] MEDS: HEPARIN SOD (PORCINE) 5,000 UNIT/ML 1 ML VIAL SUBCUT SCH (06:15)
[2020-07-12] MEDS: HYDROMORPHONE HCL INJ/PF 2 MG/ML AMPULE IV PRN (06:15)
[2020-07-12] MEDS: PANTOPRAZOLE SODIUM 40 MG TABLET.DR PO SCH (06:16)
[2020-07-12 06:24] LABS: ANION GAP 9 (5-19); BLOOD UREA NITROGEN 14 mg/dL (7-20); CALCIUM 9.8 mg/dL (8.4-10.2); CARBON DIOXIDE 24 mmol/L (22-30); CHLORIDE 108 mmol/L (98-107); CHOLESTEROL 218.84 mg/dL (0-200); GLUCOSE 90 mg/dL (75-110); PHOSPHORUS 3.8 mg/dL (2.5-4.5); POTASSIUM 4.1 mmol/L (3.6-5.0); TRIGLYCERIDES 272 mg/dL (<150)
[2020-07-12 06:35] LABS: DIRECT LDL 131 mg/dL (<100)
[2020-07-12 06:43] LABS: VLDL CHOLESTEROL 54.4 mg/dL (10-31)
[2020-07-12] MEDS ORDERED: NORMAL SALINE 1000 ML 1,000 ML IV ONE ×3 (08:05→18:06)
[2020-07-12] MEDS ORDERED: PRAZOSIN HCL 10 MG PO PRN (09:40)
[2020-07-12] MEDS ORDERED: (PENDING PHARMACY ID) (Fexofenadine Hcl [Allegra Allergy] 60 MG) PO SCH (09:45)
[2020-07-12] MEDS ORDERED: (PENDING PHARMACY ID) (Lansoprazole [Prevacid] 30 MG) PO SCH (10:00)
[2020-07-12] MEDS ORDERED: DOCUSATE SODIUM 100 MG CAPSULE PO SCH (10:00)
[2020-07-12] MEDS ORDERED: KETOROLAC TROMETHAMINE INJ/PF 30 MG/1 ML SDV IV ONE (10:11)
[2020-07-12] MEDS ORDERED: METOCLOPRAMIDE HCL INJ/PF 10 MG/2 ML SDV IV ONE (10:15)
[2020-07-12] MEDS ORDERED: LORATADINE 10 MG TABLET PO ONE (10:15)
[2020-07-12] MEDS: FLUTICASONE NASAL SPRAY 50 MCG/SPRY 120 SPRAY/16 GM NASL SCH ×2 (10:57→21:14)
[2020-07-12] MEDS: FAMOTIDINE 20 MG TABLET PO SCH ×2 (10:58→18:05)
[2020-07-12] MEDS: ATENOLOL 50 MG TABLET PO SCH (10:58)
[2020-07-12] MEDS: DULOXETINE HCL 30 MG CAPSULE.DR PO SCH ×2 (10:59→21:10)
[2020-07-12] MEDS: PREGABALIN 100 MG CAPSULE PO SCH ×2 (11:00→21:10)
[2020-07-12] MEDS: ESCITALOPRAM OXALATE 10 MG TABLET PO SCH (11:00)
[2020-07-12] MEDS: FLUTICASONE/VILANTEROL 200-25 MCG/DOSE IH SCH (11:00)
[2020-07-12] MEDS: TOPIRAMATE 100 MG TABLET PO SCH ×2 (11:01→21:15)
[2020-07-12] MEDS: TIZANIDINE HCL 4 MG TABLET PO SCH ×2 (13:07→21:16)
[2020-07-12] MEDS ORDERED: NORMAL SALINE 1000 ML 1,000 ML IV PRN (18:06)
[2020-07-12] MEDS: HYDROMORPHONE HCL 2 MG TABLET PO PRN (18:06)
--- NOTE | 2020-07-12 18:10 | PDOC PROGRESS REPORT ---
Subjective Progress Note for:: 07/12/20 Subjective:: He is feeling much better today. He has a migraine which is typical for him and is requesting that his home meds be restarted. Reason For Visit: METABOLIC ACIDOSIS,HYPOVOLEMIC HYPOTENSION Physical Exam Vital Signs: Temp Pulse Resp BP Pulse Ox 98.3 F 115 H 16 138/95 H 98 07/12/20 07:36 07/12/20 16:10 07/12/20 16:10 07/12/20 07:27 07/12/20 16:10 Intake & Output 07/11/20 07/12/20 07/13/20 06:59 06:59 06:59 Intake Total 1000 Balance 1000 Weight 88.2 kg General appearance: PRESENT: no acute distress Eye exam: ABSENT: scleral icterus Mouth exam: PRESENT: dry mucosa Throat exam: ABSENT: post pharyngeal erythema, tonsillar exudate Neck exam: ABSENT: JVD, lymphadenopathy Respiratory exam: PRESENT: clear to auscultation li, unlabored. ABSENT: crackles Cardiovascular exam: PRESENT: RRR GI/Abdominal exam: PRESENT: normal bowel sounds, soft. ABSENT: tenderness Extremities exam: PRESENT: other - R AKA Neurological exam: PRESENT: alert, awake, oriented to person, oriented to place, oriented to time, oriented to situation Psychiatric exam: PRESENT: appropriate affect, normal mood. ABSENT: flat affect, suicidal ideation Skin exam: ABSENT: rash Results Laboratory Results: 07/12/20 05:44 07/12/20 05:44 07/11/20 07/11/20 07/12/20 18:00 21:21 01:50 WBC RBC Hgb Hct MCV MCH MCHC RDW Plt Count Sodium Potassium Chloride Carbon Dioxide Anion Gap BUN Creatinine Est GFR ( Amer) Glucose Lactic Acid 1.0 0.8 Calcium Phosphorus Magnesium Triglycerides Cholesterol LDL Cholesterol Direct VLDL Cholesterol HDL Cholesterol TSH Urine Color YELLOW Urine Appearance CLEAR Urine pH 6.0 Ur Specific [place] 1.004 Urine Protein NEGATIVE Urine Glucose (UA) 50 H Urine Ketones NEGATIVE Urine Blood NEGATIVE Urine Nitrite NEGATIVE Ur Leukocyte Esterase NEGATIVE Urine WBC (Auto) 4 Urine RBC (Auto) 4 07/12/20 07/12/20 07/12/20 05:44 05:44 05:44 WBC 8.2 RBC 4.88 Hgb 14.0 Hct 41.3 MCV 85 MCH 28.6 MCHC 33.8 RDW 13.6 Plt Count 185 Sodium 141.2 Potassium 4.1 Chloride 108 H Carbon Dioxide 24 Anion Gap 9 BUN 14 Creatinine 1.44 H Est GFR ( Amer) > 60 Glucose 90 Lactic Acid 1.2 Calcium 9.8 Phosphorus 3.8 Magnesium 2.2 Triglycerides 272 H Cholesterol 218.84 H LDL Cholesterol Direct 131 H VLDL Cholesterol 54.4 H HDL Cholesterol 33 L TSH Urine Color Urine Appearance Urine pH Ur Specific [place] Urine Protein Urine Glucose (UA) Urine Ketones Urine Blood Urine Nitrite Ur Leukocyte Esterase Urine WBC (Auto) Urine RBC (Auto) 07/12/20 05:44 WBC RBC Hgb Hct MCV MCH MCHC RDW Plt Count Sodium Potassium Chloride Carbon Dioxide Anion Gap BUN Creatinine Est GFR ( Amer) Glucose Lactic Acid Calcium Phosphorus Magnesium Triglycerides Cholesterol LDL Cholesterol Direct VLDL Cholesterol HDL Cholesterol TSH 1.63 Urine Color Urine Appearance Urine pH Ur Specific [place] Urine Protein Urine Glucose (UA) Urine Ketones Urine Blood Urine Nitrite Ur Leukocyte Esterase Urine WBC (Auto) Urine RBC (Auto) Impressions: Chest X-Ray 07/11/20 15:03 IMPRESSION: NO SIGNIFICANT RADIOGRAPHIC FINDING IN THE CHEST. Abdomen/Pelvis CT 07/11/20 19:10 IMPRESSION: No findings to correlate to the patient's reported renal failure. No evidence of acute intra-abdominal infectious/inflammatory process. Assessment and Plan - Plan Summary Summary: Mr. 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 He notes that he has felt unwell x5 months, and endorses lack of energy, poor appetite, increased migraines, worsening tinnitus and worsening light sensitivity. He states that he has had normal oral intake at home and has been drinking plenty of fluids. He has had no recent med changes or sick contacts. Blood cultures x2 are negative to date and he has no signs/symptoms of infection. He has no nausea vomiting or diarrhea has been tolerating meals. Blood pressure and kidney function have impr mahesh tremendously with IV fluids, which we will continue for now. The precipitating factor for this hospital stay remains unclear to me at this time. Dispo: Continue IVF today, and consider DC home tomorrow if labs are back to normal. He will need close outpatient follow up with his PCP regarding the last several months history of vague diffuse symptoms. - Time Time Spent with patient: 35 or more minutes Anticipated Discharge Disposition: Home, Self Care Anticipated Discharge Timeframe: within 24 hours
[2020-07-12] MEDS: ACETAMINOPHEN 325 MG TABLET PO PRN (21:27)
[2020-07-12] MEDS: MELATONIN 5 MG TABLET PO PRN (21:27)
[2020-07-12] MEDS ORDERED: LORATADINE 10 MG TABLET PO SCH (22:00)
[2020-07-12] MEDS ORDERED: TRAZODONE HCL 50 MG TABLET PO SCH (22:00)
[2020-07-13] MEDS: TIZANIDINE HCL 4 MG TABLET PO SCH (05:25)
[2020-07-13] MEDS: HYDROMORPHONE HCL 2 MG TABLET PO PRN (05:26)
[2020-07-13] MEDS: PANTOPRAZOLE SODIUM 40 MG TABLET.DR PO SCH (05:26)
[2020-07-13 07:13] LABS: ANION GAP 7 (5-19); BLOOD UREA NITROGEN 11 mg/dL (7-20); CALCIUM 9.3 mg/dL (8.4-10.2); CARBON DIOXIDE 22 mmol/L (22-30); CHLORIDE 112 mmol/L (98-107); GLUCOSE 81 mg/dL (75-110); POTASSIUM 4.3 mmol/L (3.6-5.0)
[2020-07-13] MEDS: TOPIRAMATE 100 MG TABLET PO SCH (09:58)
[2020-07-13] MEDS: ESCITALOPRAM OXALATE 10 MG TABLET PO SCH (09:58)
[2020-07-13] MEDS: DULOXETINE HCL 30 MG CAPSULE.DR PO SCH (09:59)
[2020-07-13] MEDS: FAMOTIDINE 20 MG TABLET PO SCH (09:59)
[2020-07-13] MEDS: PREGABALIN 100 MG CAPSULE PO SCH (09:59)
[2020-07-13] MEDS: FLUTICASONE NASAL SPRAY 50 MCG/SPRY 120 SPRAY/16 GM NASL SCH (09:59)
[2020-07-13] MEDS: FLUTICASONE/VILANTEROL 200-25 MCG/DOSE IH SCH (10:00)
[2020-07-13] MEDS: ATENOLOL 50 MG TABLET PO SCH (11:27)
[2020-07-13] MEDS: ACETAMINOPHEN 325 MG TABLET PO PRN (12:38)
[2020-07-13 13:26] VITALS: BP 128/65
--- NOTE | 2020-07-13 18:30 | PDOC DISCHARGE SUMMARY ---
Impression - Admit/DC Date/PCP Admission Date/Primary Care Provider: 07/11/20 19:59 [facility] Discharge Date: 07/13/20 - Assessment Summary: Mr. 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 He notes that he has felt unwell x5 months, and endorses lack of energy, poor appetite, increased migraines, worsening tinnitus and worsening light sensitivity. He states that he has had normal oral intake at home and has been drinking plenty of fluids. He has had no recent med changes or sick contacts. Blood cultures x2 were negative to date and he had no signs/symptoms of infection. He had no nausea, vomiting or diarrhea during this admission and tolerated 100% of his meals. Blood pressure and kidney function have improved tremendously with IV fluids. The precipitating factor for this hospital stay may have been that he has been taking lisinopril at home, but does not need it. His BP was normal without antihypertensive therapy while inpatient. He was discharged home in stable condition and his home lisinopril was discontinued. He was urged to begin keeping a BP log at home. He will need close outpatient follow up with his PCP regarding the last several months history of vague diffuse symptoms, as well as follow up for his BP now that he is off of lisinopril. - Additional Information Resuscitation Status: Full Code Discharge Diet: Regular Discharge Activity: Activity As Tolerated Referrals: [facility] [Primary [facility]] - Follow up as needed Home Medications: Duloxetine HCl [Cymbalta] 60 mg PO Q12 06/19/18 Lansoprazole [Prevacid] 30 mg PO DAILY 06/19/18 Tizanidine HCl 8 mg PO TID 06/19/18 Topiramate 100 mg PO Q12 06/19/18 Budesonide/Formoterol Fumarate [Symbicort HFA 160-4.5 mcg Inhaler 6 gm] 2 puff IH Q12 07/08/19 Escitalopram Oxalate [Lexapro] 20 mg PO DAILY 07/08/19 Prazosin HCl 10 mg PO HSP PRN 07/08/19 Pregabalin [Lyrica] 300 mg PO BID 07/08/19 Famotidine [Pepcid AC] 20 mg PO BID 07/12/20 Fexofenadine HCl [Pia Allergy] 60 mg PO QHS 07/12/20 Fluticasone Propionate [Flonase Nasal [place] 50 Mcg/[place] 16 gm] 1 spray NASL Q12 07/12/20 Hydromorphone HCl [Dilaudid 2 mg Tablet] 2 mg PO TIDP PRN 07/12/20 Lisinopril [Prinivil] 20 mg PO QAM 07/12/20 Trazodone HCl 100 mg PO QHS 07/12/20 Trazodone HCl [Desyrel 50 mg Tablet] 50 mg PO TID 07/12/20 History of Present Illiness History of Present Illness: MANJEET CHAU is a 30 year old male Physical Exam Vital Signs: Temp Pulse Resp BP Pulse Ox 97.7 F 57 L 18 128/65 H 96 07/13/20 12:56 07/13/20 12:56 07/13/20 12:56 07/13/20 11:45 07/13/20 12:56 Intake & Output 07/12/20 07/13/20 07/14/20 06:59 06:59 06:59 Intake Total 2320 450 Output Total 3875 Balance -1555 450 Weight 88.2 kg 90.8 kg Results Laboratory Results: WBC 8.2 10^3/uL (4.0-10.5) 07/12/20 05:44 RBC 4.88 10^6/uL (4.35-5.55) 07/12/20 05:44 Hgb 14.0 g/dL (13.5-17.0) 07/12/20 05:44 Hct 41.3 % (37.9-51.0) 07/12/20 05:44 MCV 85 fl (80-97) 07/12/20 05:44 MCH 28.6 pg (27.0-33.4) 07/12/20 05:44 MCHC 33.8 g/dL (32.0-36.0) 07/12/20 05:44 RDW 13.6 % (11.5-14.0) 07/12/20 05:44 Plt Count 185 10^3/uL (150-450) 07/12/20 05:44 Lymph % (Auto) 12.9 % (13-45) L 07/11/20 15:05 [place] % (Auto) 7.0 % (3-13) 07/11/20 15:05 Eos % (Auto) 0.5 % (0-6) 07/11/20 15:05 Baso % (Auto) 0.6 % (0-2) 07/11/20 15:05 Absolute Neuts (auto) 8.8 10^3/uL (1.7-8.2) H 07/11/20 15:05 Absolute Lymphs (auto) 1.4 10^3/uL (0.5-4.7) 07/11/20 15:05 Absolute Monos (auto) 0.8 10^3/uL (0.1-1.4) 07/11/20 15:05 Absolute Eos (auto) 0.1 10^3/uL (0.0-0.6) 07/11/20 15:05 Absolute Basos (auto) 0.1 10^3/uL (0.0-0.2) 07/11/20 15:05 Seg Neutrophils % 79.0 % (42-78) H 07/11/20 15:05 VBG pH 7.27 (7.30-7.42) L 07/11/20 15:34 VBG pCO2 40.1 mmHg (35-63) 07/11/20 15:34 VBG HCO3 18.1 mmol/L (20-32) L 07/11/20 15:34 VBG Base Excess -8.2 mmol/L 07/11/20 15:34 Sodium 141.3 mmol/L (137-145) 07/13/20 05:15 Potassium 4.3 mmol/L (3.6-5.0) 07/13/20 05:15 Chloride 112 mmol/L (98-107) H 07/13/20 05:15 Carbon Dioxide 22 mmol/L (22-30) 07/13/20 05:15 Anion Gap 7 (5-19) 07/13/20 05:15 BUN 11 mg/dL (7-20) 07/13/20 05:15 Creatinine 1.13 mg/dL (0.52-1.25) 07/13/20 05:15 Est GFR ( Amer) > 60 (>60) 07/13/20 05:15 Est GFR (MDRD) Non-Af > 60 (>60) 07/13/20 05:15 Glucose 81 mg/dL (75-110) 07/13/20 05:15 Hemoglobin A1c % 5.4 % (4.7-6.0) 07/12/20 05:44 Lactic Acid 1.2 mmol/L (0.7-2.1) 07/12/20 05:44 Calcium 9.3 mg/dL (8.4-10.2) 07/13/20 05:15 Phosphorus 3.8 mg/dL (2.5-4.5) 07/12/20 05:44 Magnesium 2.2 mg/dL (1.6-2.3) 07/13/20 05:15 Total Bilirubin 0.5 mg/dL (0.2-1.3) 07/11/20 15:05 Direct Bilirubin 0.4 mg/dL (0.0-0.4) 07/11/20 15:05 Neonat Total Bilirubin Not Reportable 07/11/20 15:05 Neonat Direct Bilirubin Not Reportable 07/11/20 15:05 Neonat Indirect Bili Not Reportable 07/11/20 15:05 AST 15 U/L (17-59) L 07/11/20 15:05 ALT 13 U/L (<50) 07/11/20 15:05 Alkaline Phosphatase 77 U/L (38-126) 07/11/20 15:05 Total Protein 7.2 g/dL (6.3-8.2) 07/11/20 15:05 Albumin 4.2 g/dL (3.5-5.0) 07/11/20 15:05 Triglycerides 272 mg/dL (<150) H 07/12/20 05:44 Cholesterol 218.84 mg/dL (0-200) H 07/12/20 05:44 LDL Cholesterol Direct 131 mg/dL (<100) H 07/12/20 05:44 VLDL Cholesterol 54.4 mg/dL (10-31) H 07/12/20 05:44 HDL Cholesterol 33 mg/dL (>40) L 07/12/20 05:44 TSH 1.63 uIU/mL (0.47-4.68) 07/12/20 05:44 Urine Color YELLOW 07/11/20 18:00 Urine Appearance CLEAR 07/11/20 18:00 Urine pH 6.0 (5.0-9.0) 07/11/20 18:00 Ur Specific [place] 1.004 07/11/20 18:00 Urine Protein NEGATIVE mg/dL (NEGATIVE) 07/11/20 18:00 Urine Glucose (UA) 50 mg/dL (NEGATIVE) H 07/11/20 18:00 Urine Ketones NEGATIVE mg/dL (NEGATIVE) 07/11/20 18:00 Urine Blood NEGATIVE (NEGATIVE) 07/11/20 18:00 Urine Nitrite NEGATIVE (NEGATIVE) 07/11/20 18:00 Urine Bilirubin NEGATIVE (NEGATIVE) 07/11/20 18:00 Urine Urobilinogen NEGATIVE mg/dL (<2.0) 07/11/20 18:00 Ur Leukocyte Esterase NEGATIVE (NEGATIVE) 07/11/20 18:00 Urine WBC (Auto) 4 /HPF 07/11/20 18:00 Urine RBC (Auto) 4 /HPF 07/11/20 18:00 Urine Bacteria (Auto) TRACE /HPF 07/11/20 18:00 Squamous Epi Cells Auto <1 /HPF 07/11/20 18:00 Urine Ascorbic Acid NEGATIVE (NEGATIVE) 07/11/20 18:00 Urine Opiates Screen NEGATIVE 07/11/20 18:00 Urine Methadone Screen NEGATIVE 07/11/20 18:00 Ur Barbiturates Screen NEGATIVE 07/11/20 18:00 Ur Phencyclidine Scrn NEGATIVE 07/11/20 18:00 Ur Amphetamines Screen NEGATIVE 07/11/20 18:00 U Benzodiazepines Scrn NEGATIVE 07/11/20 18:00 Urine Cocaine Screen NEGATIVE 07/11/20 18:00 U Marijuana (THC) Screen NEGATIVE 07/11/20 18:00 Impressions: Chest X-Ray 07/11/20 15:03 IMPRESSION: NO SIGNIFICANT RADIOGRAPHIC FINDING IN THE CHEST. Abdomen/Pelvis CT 07/11/20 19:10 IMPRESSION: No findings to correlate to the patient's reported renal failure. No evidence of acute intra-abdominal infectious/inflammatory process. Stroke Is this a Stroke Patient?: No Acute Heart Failure Is this a Heart Failure Patient?: No
== END 2020-07-13 13:27 | disposition home or self-care (01) | DRG 683 ==
LOC: ER 14:43 → EH 19:59 → 5 21:35
PROVIDERS: ADMIT Emergency Medicine; ATTEND Hospitalist
DX: N17.9 Acute kidney failure, unspecified (principal); E87.2 Acidosis; I95.9 Hypotension, unspecified; G89.4 Chronic pain syndrome; I10 Essential (primary) hypertension; J45.909 Unspecified asthma, uncomplicated; K21.0 Gastro-esophageal reflux disease with esophagitis; F43.10 Post-traumatic stress disorder, unspecified; F32.9 Major depressive disorder, single episode, unspecified; Z89.611 Acquired absence of right leg above knee; Z86.14 Personal history of Methicillin resistant Staphylococcus aureus infection; Z79.51 Long term (current) use of inhaled steroids; Z79.899 Other long term (current) drug therapy
CPT/HCPCS: 36415; 71045; 74176; 80048; 80053; 80061; 80307; 81001; 82803; 83036; 83605; 83735; 84100; 84443; 85025; 85027; 87040; 93005; 93010; 96360; 96361; 99291; J1170; J1200; J1644; J1885; J2765; J3490; J7030; J7120; J7121